=== PATIENT | female | born 1980 | race Two or more races ===

== ENCOUNTER → 2016-06-30 | Outpatient (REF) | payer OTHER | LOC: M LAB REF 17:08 | PROVIDERS: ATTEND Obstetrics & Gynecology | DX: Z12.4 Encounter for screening for malignant neoplasm of cervix (principal) ==

== ENCOUNTER 2016-09-27 08:12 | Emergency (ER) | payer OTHER ==
[~2016-09-27] VITALS: Ht 167.6 cm; Wt 93.0 kg
[2016-09-27] MEDS ORDERED: PROP60TA18 PO (08:20)
[2016-09-27] MEDS ORDERED: EFFE150C PO (08:20)
[2016-09-27] MEDS ORDERED: TETRACAINE 0.5% OPHTH SOLN 4ML OS ONE (09:45)
[2016-09-27] MEDS ORDERED: FLUORESCEIN OPHTH 1 MG STRIP OS ONE (09:45)
[2016-09-27] MEDS ORDERED: CYCL1SOL17 OS (10:57)
[2016-09-27] MEDS ORDERED: CIPR0.3S OS (11:01)
[2016-09-27 11:06] VITALS: BP 114/85
== END 2016-09-27 11:15 | disposition home or self-care (01) ==
LOC: M ED 08:12
DX: H20.012 Primary iridocyclitis, left eye (principal); F41.9 Anxiety disorder, unspecified; Z79.899 Other long term (current) drug therapy; Z88.1 Allergy status to other antibiotic agents; Z88.5 Allergy status to narcotic agent

== ENCOUNTER 2016-12-15 23:34 | Emergency (ER) | payer OTHER ==
[~2016-12-15] VITALS: Ht 167.6 cm; Wt 98.8 kg
[~2016-12-15 23:34] MED LIST: CIPR0.3S OS; CYCL1SOL17 OS; EFFE150C PO; PROP60TA18 PO
[2016-12-15] MEDS ORDERED: PROBCAP4 PO (23:42)
[2016-12-16] MEDS ORDERED: IBUPROFEN 800 MG TAB PO ONE (00:45)
--- NOTE | 2016-12-16 01:16 | REP ---
Clinical: Trauma. Technique: AP, lateral, bilateral oblique views of the left hand. Findings: No acute fracture or dislocation. Skeletal structures, joint spaces, and surrounding soft tissues appear normal for age. No subcutaneous emphysema or radiodense foreign body. Impression: Age-appropriate left hand radiographs. No acute fracture or dislocation. Signed by Rigoberto Lau MD 12/16/2016 01:08 A
[2016-12-16 01:35] VITALS: BP 159/100
== END 2016-12-16 01:37 | disposition home or self-care (01) ==
LOC: M ED 23:34
DX: S63.512A Sprain of carpal joint of left wrist, initial encounter (principal); W22.8XXA Striking against or struck by other objects, initial encounter; Y92.119 Unspecified place in children's home and orphanage as the place of occurrence of the external cause; Y93.89 Activity, other specified; Y99.0 Civilian activity done for income or pay; F41.9 Anxiety disorder, unspecified; Z87.891 Personal history of nicotine dependence; Z79.899 Other long term (current) drug therapy; Z88.1 Allergy status to other antibiotic agents; Z88.5 Allergy status to narcotic agent

== ENCOUNTER → 2017-01-22 | Outpatient (CLI) | payer OTHER ==
[~2017-01-22] MED LIST changes: +PROBCAP4 PO
== END ==
LOC: M SMT 13:00
PROVIDERS: ATTEND Obstetrics & Gynecology
DX: Z11.3 Encounter for screening for infections with a predominantly sexual mode of transmission (principal)

== ENCOUNTER 2017-06-08 14:31 | Emergency (ER) | payer OTHER | END 2017-06-08 17:16 | disposition home or self-care (01) | LOC: M ED 14:31 | DX: L03.116 Cellulitis of left lower limb (principal); E28.2 Polycystic ovarian syndrome; F41.9 Anxiety disorder, unspecified; Z79.899 Other long term (current) drug therapy; Z98.890 Other specified postprocedural states; Z87.891 Personal history of nicotine dependence; Z88.8 Allergy status to other drugs, medicaments and biological substances | CPT/HCPCS: 87880 ==

== ENCOUNTER → 2017-10-28 | Outpatient (CLI) | payer OTHER ==
[2017-10-28 09:52] LABS: HEMATOCRIT 39.8 % (36.0-47.0); HEMOGLOBIN 12.9 g/dl (12.0-15.5); MEAN CORPUSCULAR HEMOGLOBIN 28.2 pg (27.0-33.0); MEAN CORPUSCULAR HGB CONC 32.4 g/dl (32.0-36.5); MEAN CORPUSCULAR VOLUME 87.1 fl (80.0-96.0); PLATELET COUNT, AUTOMATED 309 10^3/uL (150-450); RED BLOOD COUNT 4.57 10^6/uL (4.00-5.40); RETIC HEMOGLOBIN EQUIVALENT 32.8 pg (24-36); RETICULOCYTE # 58.5 10^9/L (17-77); RETICULOCYTE % 1.3 % (0.5-1.5); WHITE BLOOD COUNT 7.1 10^3/uL (4.0-10.0)
[2017-10-28 10:28] LABS: CHOLESTEROL LEVEL 216 MG/DL (<200); FERRITIN 8 NG/ML (8-252); GAMMA GLUTAMYLTRANSPEPTIDASE 52 U/L (5-55); HDL CHOLESTEROL 72 MG/DL (>40); IRON (FE) 133 UG/DL (50-170); LDL CHOLESTEROL 119.6 MG/DL (<100); LUTEINIZING HORMONE 6.9 mIU/mL; NON-HDL-C 144 MG/DL; TRIGLYCERIDES LEVEL 122 MG/DL (<150)
[2017-10-28 10:29] LABS: FOLATE 20.5 NG/ML; FOLLICLE STIMULATING HORMONE 4.1 mIU/mL; VITAMIN B12 LEVEL 470 PG/ML
[2017-10-29 15:24] LABS: FREE T3 2.8 PG/ML (2.2-4.0); FREE T4 0.98 NG/DL (0.76-1.46)
== END ==
LOC: M LAB 09:11
DX: D64.9 Anemia, unspecified (principal); E28.2 Polycystic ovarian syndrome; F33.40 Major depressive disorder, recurrent, in remission, unspecified; E66.8 Other obesity; I10 Essential (primary) hypertension; F10.10 Alcohol abuse, uncomplicated
CPT/HCPCS: 82746

== ENCOUNTER 2018-01-04 08:06 | Emergency (ER) | payer OTHER | END 2018-01-04 09:40 | disposition home or self-care (01) | LOC: M ED 08:06 | DX: S50.861A Insect bite (nonvenomous) of right forearm, initial encounter (principal); S60.464A Insect bite (nonvenomous) of right ring finger, initial encounter; W57.XXXA Bitten or stung by nonvenomous insect and other nonvenomous arthropods, initial encounter; Y92.099 Unspecified place in other non-institutional residence as the place of occurrence of the external cause; Y93.9 Activity, unspecified; Y99.9 Unspecified external cause status; Z79.899 Other long term (current) drug therapy; Z88.1 Allergy status to other antibiotic agents; Z88.8 Allergy status to other drugs, medicaments and biological substances | CPT/HCPCS: 99283 ==

== ENCOUNTER → 2018-04-15 | Outpatient (CLI) | payer OTHER ==
[~2018-04-15] MED LIST changes: +BACT800T5 PO; +BUSP10TA; -EFFE150C PO; +EFFE150C2 PO; +METF500T13 PO; +NALT50TA4; +PRED20TA PO; +bcp PO; +vitamin b
--- NOTE | 2018-04-15 10:29 | REP ---
MRI right knee without contrast: History: Patellofemoral disorders, right knee. Rule out chondral injury to the patellar joint. Technique: Axial, coronal and sagittal imaging planes are utilized. T1, proton density and T2-weighted scans were obtained in the usual fashion. MRI findings: There is a small joint effusion. There is no evidence of loose body. No Sanchez's cyst is seen. However, there is a parameniscal cyst posteriorly and medially adjacent to the posterior body and posterior horn of the medial meniscus. I do not resolve a neha meniscal tear. The lateral meniscus is intact. There is no evidence of medial or lateral collateral ligament disruption. Anterior and posterior cruciate ligaments have an intact appearance. Patellar and quadriceps tendons are unremarkable. Medial and lateral patellar retinacular structures appear intact. There is moderate patellar surface chondromalacia. There is no evidence of patella shaw. The Insall-Salvati ratio is normal at 1.1. The trochlear groove appears somewhat shallow. There is also moderate chondromalacia in the medial femoral condyle and milder changes are noted in the lateral femoral condyle and lateral tibial plateau articular cartilage. No full-thickness lesion is seen. There is early medial and lateral tibial plateau spurring. 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 There is a parameniscal cyst associated with the posterior horn of the medial meniscus but no identifiable meniscal tear. Small joint effusion. No other evidence of internal derangement. Electronically Signed by Felton Lopez MD 04/15/2018 10:17 P
== END ==
LOC: M RAD 08:10
PROVIDERS: ATTEND Orthopaedic Surgery Sports Medicine
DX: M22.2X1 Patellofemoral disorders, right knee (principal)

== ENCOUNTER 2018-08-23 08:12 | Emergency (ER) | payer OTHER ==
[~2018-08-23] VITALS: Ht 167.6 cm; Wt 97.7 kg
[2018-08-23] MEDS ORDERED: OMEP40CA2 PO (08:28)
[2018-08-23] MEDS ORDERED: CLAR10CA3 PO (09:39)
[2018-08-23 09:45] VITALS: BP 157/80
[2018-08-23] MEDS ORDERED: LORATADINE 10 MG TAB PO ONE (09:45)
[2018-08-23] MEDS ORDERED: TRIAMCINOLONE ACETONIDE SUSP 40 MG/ML VIAL (J3301) IM ONE (10:00)
[2018-08-24] MEDS ORDERED: TRIAMCINOLONE ACETONIDE SUSP 40 MG/ML VIAL (J3301) IM ONE (09:00)
== END 2018-08-23 10:13 | disposition home or self-care (01) ==
LOC: M ED 09:17
DX: S50.862A Insect bite (nonvenomous) of left forearm, initial encounter (principal); W57.XXXA Bitten or stung by nonvenomous insect and other nonvenomous arthropods, initial encounter; Y92.89 Other specified places as the place of occurrence of the external cause; F41.9 Anxiety disorder, unspecified; E28.2 Polycystic ovarian syndrome; Z79.899 Other long term (current) drug therapy; Z88.8 Allergy status to other drugs, medicaments and biological substances
CPT/HCPCS: 96372; 99283; J3301

== ENCOUNTER → 2019-01-17 | Outpatient (CLI) | payer OTHER ==
[~2019-01-17] MED LIST changes: +BUSP15TA47 PO; +CLAR10CA3 PO; +IBUP-1022 PO; +OMEP-218 PO; +OMEP40CA97 PO; +OXYC1TAB23 PO; +VENL75CA47 PO
[2019-01-17 14:52] LABS: HEMATOCRIT 36.8 % (36.0-47.0); HEMOGLOBIN 11.8 g/dl (12.0-15.5); MEAN CORPUSCULAR HGB CONC 32.1 g/dl (32.0-36.5); MEAN CORPUSCULAR VOLUME 87.4 fl (80.0-96.0); PLATELET COUNT, AUTOMATED 379 10^3/uL (150-450); RED BLOOD COUNT 4.21 10^6/uL (4.00-5.40); WHITE BLOOD COUNT 14.2 10^3/uL (4.0-10.0)
[2019-01-17 15:22] LABS: FREE T4 0.96 NG/DL (0.76-1.46); THYROID STIMULATING HORMONE 0.406 uIU/ML (0.358-3.740)
== END ==
LOC: M LAB 14:17
PROVIDERS: ATTEND Obstetrics & Gynecology
DX: N92.0 Excessive and frequent menstruation with regular cycle (principal)

== ENCOUNTER → 2019-01-18 | Outpatient (CLI) | payer OTHER ==
[~2019-01-18] MED LIST changes: -OXYC1TAB23 PO
--- NOTE | 2019-01-19 03:00 | REP ---
Clinical: Abnormal menstrual cycles and menorrhagia . Technique: Transabdominal pelvic ultrasound followed by transvaginal examination for better evaluation of the endometrium and adnexa with color Doppler evaluation of the ovaries. Findings: Bladder is unremarkable and measures 7.1 x 3.4 x 4.9 cm Heterogeneous anteverted uterus measures 10.1 x 5.8 x 6.8 cm and includes 2.8 cm anterior intramural fibroid and 1.4 cm anterior right intramural fibroid. The endometrial complex measures 5.2 mm thickness. No discrete uterine or endometrial abnormalities are appreciated. Bilateral ovaries are normal in appearance and vascularity without evidence for torsion. Right ovary measures 2.8 x 2.2 x 2.3 cm ; R I = 0.63 . Left ovary measures 3.1 x 1.5 x 2.2 cm ; R I = 0.47 . No pelvic fluid or adnexal mass lesion . Impression: 1. Slightly enlarged heterogeneous uterus with two intramural fibroids identified. Electronically Signed by Rigoberto Lau MD 01/19/2019 02:52 A
== END ==
LOC: M RAD 10:01
PROVIDERS: ATTEND Obstetrics & Gynecology
DX: N92.0 Excessive and frequent menstruation with regular cycle (principal)

== ENCOUNTER 2019-01-26 08:31 | Day surgery (SDC) | payer OTHER ==
[~2019-01-26] VITALS: Ht 167.6 cm; Wt 100.7 kg
[2019-01-26] VITALS (10 sets, daily range): BP systolic 90–113; BP diastolic 50–61; O2SAT 95–98
[~2019-01-26 08:31] MED LIST changes: +CIPROFLOXACIN 400 MG in IV 1 EA IV ONE; +LR 1,000 ML IV ONE; +metroNIDAZOLE 500 MG in IV 1 EA IV ONE
[2019-01-26] MEDS ORDERED: dexameTHASONE 4 MG/ML 1ML VIAL (J1100) As Ordered ONE (09:03)
[2019-01-26] MEDS ORDERED: HYDROmorphone HCL 2 MG/ML 1ML VIAL (J1170) As Ordered ONE (09:03)
[2019-01-26] MEDS ORDERED: LIDOCAINE 2% INJ 100 MG/5 ML SDV (FOR ANES.) As Ordered ONE (09:03)
[2019-01-26] MEDS ORDERED: ROCURONIUM BROMIDE 50 MG/5 ML VIAL As Ordered ONE (09:03)
[2019-01-26] MEDS ORDERED: ONDANSETRON 4MG/2ML VIAL (J2405) As Ordered ONE (09:03)
[2019-01-26] MEDS ORDERED: ACETAMINOPHEN 1000MG 100ML IV BTL (OFIRMEV) (J0131 PER 10MG) As Ordered ONE (09:03)
[2019-01-26] MEDS ORDERED: fentaNYL 100 MCG/2 ML INJECTION (J3010) As Ordered ONE ×2 (09:03→12:40)
[2019-01-26] MEDS ORDERED: SUGAMMADEX SODIUM 500 MG/5 ML VIAL (BRIDION) As Ordered ONE (09:03)
[2019-01-26] MEDS ORDERED: PROPOFOL 200 MG/20 ML VIAL As Ordered ONE (09:03)
[2019-01-26] MEDS ORDERED: KETOROLAC 60 MG/2 ML VIAL (J1885) As Ordered ONE (09:03)
[2019-01-26] MEDS ORDERED: MIDAZOLAM INJ 2 MG/2 ML VIAL (J2250) As Ordered ONE (09:04)
[2019-01-26] MEDS ORDERED: BUPIVACAINE HCL 0.25% 30 ML VIAL As Ordered ONE (10:00)
[2019-01-26] MEDS ORDERED: ePHEDrine SULFATE 25 MG/5 ML(5MG/ML) SYRINGE As Ordered ONE (10:39)
[2019-01-26] MEDS: fentaNYL 100 MCG/2 ML INJECTION (J3010) IV PRN ×3 (12:42→12:55)
[2019-01-26] MEDS ORDERED: LR 1,000 ML IV SCH ×2 (13:30)
[2019-01-26] MEDS ORDERED: METOCLOPRAMIDE INJ 10MG/2ML VIAL (J2765) IV PRN (13:30)
[2019-01-26] MEDS ORDERED: PERCOCET 5MG/325MG TAB PO PRN ×2 (13:30)
[2019-01-26] MEDS ORDERED: ONDANSETRON 4MG/2ML VIAL (J2405) IV PRN (13:30)
[2019-01-26] MEDS ORDERED: HYDROMORPHONE HCL 0.5 MG/ 0.5 ML SYRINGE (J1170 PER 1) IV PRN (13:30)
[2019-01-26] MEDS ORDERED: PROMETHAZINE INJ 25 MG/ML VIAL (J2550) IV PRN (13:45)
[2019-01-26] MEDS ORDERED: MORPHINE 4 MG/ML 1ML VIAL/SYRINGE (J2270) IV PRN (13:45)
[2019-01-26] MEDS ORDERED: zolPIDEM TARTRATE 5 MG TAB PO PRN (13:45)
[2019-01-26] MEDS ORDERED: PHENYLEPHRINE INJ 10MG/ML VIAL (J2370) As Ordered ONE (14:03)
[2019-01-26] MEDS ORDERED: OXYC1TAB23 PO (14:21)
--- NOTE | 2019-01-26 14:29 | RO ---
DATE OF PROCEDURE: 01/26/2019 PREOPERATIVE DIAGNOSIS: Abnormal uterine bleeding. POSTOPERATIVE DIAGNOSIS: Abnormal uterine bleeding. PROCEDURES PERFORMED: 1. Robotic-assisted laparoscopic hysterectomy. 2. Bilateral salpingectomy. 3. Cystoscopy. SURGEON: Angela Shanks MD. PRODUCT TEST SPECIALIST: None. ANESTHESIA: Generally tracheal anesthesia. ESTIMATED BLOOD LOSS: 15 mL. IV FLUIDS: 1200 mL URINE OUTPUT: 500 mL. PREOPERATIVE ANTIBIOTICS: Ciprofloxacin and Flagyl OPERATIVE FINDINGS: Patient with a large uterus with normal adnexa. Cystoscopic findings revealed normal bladder mucosa. No foreign bodies or objects. Bilateral ureter jets were observed during cystoscopy. SPECIMENS: Cervix, uterus, bilateral fallopian tube. DESCRIPTION OF OPERATION: After informed consent was obtained and written consent was reviewed, the patient brought to the operating room where she was placed under general endotracheal anesthesia. She was then placed in lithotomy position and was prepped and draped in normal sterile fashion. A time-out in the operating room was performed identifying the patient, procedure to be performed as well as drug allergies. Speculum was then placed revealing the cervix. Anterior posterior aspects of the cervix stitched with 0 Vicryl. An extra large VCare uterine manipulator was advanced through the cervical os for means to manipulate the uterus. 7 mL of air was then insufflated. The cervical cap as well as vaginal sleeve was advanced down into the vagina. A Nesbitt catheter was then placed set to gravity. Gloves changed. Attention was turned to the patient's abdomen where a Veress needle was placed in the umbilicus and a pneumoperitoneum was obtained with CO2 gas. Supraumbilical area was then infused with 0.25% Marcaine. An incision was made in this area. An 8 mm trocar sleeve was advanced through this incision. Laparoscope was replaced revealing intra-abdominal placement. Three additional port sites were placed, one to the patient's right side, two to the patient's left of the umbilicus. Each one of these areas were infused with 0.25% Marcaine. An incision was made in each one of these areas. 8 mm trocars and sleeves advanced through each one of these incisions under direct visualization. The abdomen was then surveyed with the above-noted findings. Next, the da Tiffany was docked utilizing camera arm and two operative arms. Utilizing a vessel sealer the mesosalpinx, bilateral fallopian tubes were cauterized and ligated with good hemostasis noted. This was performed up to the level of the uterus. The round ligaments were ligated bilaterally with good hemostasis noted. The anterior lip of the broad ligaments were then , cauterized and ligated creating a bladder flap. The remainder of the broad cardinal ligaments were then cauterized and ligated with good hemostasis noted. The uterine vessels were then skeletonized bilaterally and cauterized and ligated with good hemostasis noted. Next, anterior and posterior colpotomies were made using monopolar scissors. The uterus was then removed vaginally along with bilateral fallopian tubes. Surgical sites were then inspected and noted be hemostatic. The vaginal incision was then closed with old V-Loc in a running fashion. Surgical sites were irrigated and suctioned. Petey was applied over the surgical field. The da Tiffany was then undocked and a cystoscopy was performed. Nesbitt catheter was removed and the cystoscope was advanced transurethrally into the bladder. Survey showed normal bladder mucosa. No foreign bodies or objects and bilateral ureter jets were observed. The bladder was then drained. Gloves were changed. Attention was turned to the patient's abdomen. A four trocars were removed and the pneumoperitoneum was released. All four port sites were closed for Monocryl and dressed with Dermabond. The patient was then taken out of the lithotomy position, was awakened from general anesthesia and taken recovery in stable condition. Counts correct.
[2019-01-26] MEDS ORDERED: PHENYLEPHRINE HCL INJ 10 MG in D5W 99 ML IV SCH (14:30)
[2019-01-26] MEDS ORDERED: LACTATED RINGER'S 500 ML IV ONE (14:30)
[2019-01-26] MEDS ORDERED: PHENYLephrine HCL 500 MCG/5 ML (100MCG/ML) SYRINGE (J2370) IV SCH (14:30)
[2019-01-26] MEDS: KETOROLAC 30 MG/ML VIAL (J1885) IV SCH ×2 (18:38→23:12)
[2019-01-26] MEDS: PERCOCET 5MG/325MG TAB PO PRN (22:07)
[2019-01-26] MEDS ORDERED: SIMETHICONE 80 MG CHEW TAB PO PRN (23:45)
[2019-01-27] VITALS: BP 111/65; O2SAT 95
[2019-01-27 01:00] VITALS: O2SAT 97
[2019-01-27 04:00] VITALS: BP 128/67; O2SAT 95
[2019-01-27] MEDS: PERCOCET 5MG/325MG TAB PO PRN ×2 (04:28→09:31)
[2019-01-27 05:00] VITALS: O2SAT 95
[2019-01-27 06:00] VITALS: O2SAT 94
[2019-01-27] MEDS: KETOROLAC 30 MG/ML VIAL (J1885) IV SCH (06:13)
[2019-01-27 07:23] LABS: HEMOGLOBIN 7.7 g/dl (12.0-15.5); MEAN CORPUSCULAR HEMOGLOBIN 27.3 pg (27.0-33.0); MEAN CORPUSCULAR HGB CONC 30.8 g/dl (32.0-36.5); MEAN CORPUSCULAR VOLUME 88.7 fl (80.0-96.0); PLATELET COUNT, AUTOMATED 287 10^3/uL (150-450); RED BLOOD COUNT 2.82 10^6/uL (4.00-5.40); WHITE BLOOD COUNT 10.8 10^3/uL (4.0-10.0)
[2019-01-27 08:00] VITALS: BP 106/57
== END 2019-01-27 09:45 | disposition home or self-care (01) ==
LOC: M SDC 08:31 → M PED 15:10 → M SDC 01-27 09:45
PROVIDERS: ATTEND Obstetrics & Gynecology
DX: D25.1 Intramural leiomyoma of uterus (principal); N80.0 Endometriosis of uterus; N93.9 Abnormal uterine and vaginal bleeding, unspecified; D64.9 Anemia, unspecified; F41.9 Anxiety disorder, unspecified; G43.909 Migraine, unspecified, not intractable, without status migrainosus; R06.83 Snoring; G47.30 Sleep apnea, unspecified; Z88.1 Allergy status to other antibiotic agents; Z88.5 Allergy status to narcotic agent; Z79.899 Other long term (current) drug therapy; Z98.51 Tubal ligation status
CPT/HCPCS: 36415; 58571; 81025; 85027; 86850; 86900; 86901; 88307; J0131; J0744; J1100; J1170; J1885; J2250; J2370; J2405; J3010

== ENCOUNTER → 2019-06-17 | Outpatient (CLI) | payer OTHER, MEDICAID ==
[~2019-06-17] MED LIST changes: -CIPROFLOXACIN 400 MG in IV 1 EA IV ONE; -LR 1,000 ML IV ONE; +OXYC1TAB23 PO; -metroNIDAZOLE 500 MG in IV 1 EA IV ONE
[2019-06-17 08:36] LABS: HEMATOCRIT 39.5 % (36.0-47.0); HEMOGLOBIN 13.1 g/dl (12.0-15.5); MEAN CORPUSCULAR HEMOGLOBIN 28.9 pg (27.0-33.0); MEAN CORPUSCULAR HGB CONC 33.2 g/dl (32.0-36.5); PLATELET COUNT, AUTOMATED 378 10^3/uL (150-450); RED BLOOD COUNT 4.54 10^6/uL (4.00-5.40); WHITE BLOOD COUNT 9.5 10^3/uL (4.0-10.0)
[2019-06-17 08:58] LABS: PERCENT SATURATION 22.4 % (13.2-45.0)
== END ==
LOC: M LAB 07:41
PROVIDERS: ATTEND Family Medicine
DX: D50.8 Other iron deficiency anemias (principal)

== ENCOUNTER → 2019-06-20 | Outpatient (CLI) | payer OTHER ==
--- NOTE | 2019-06-21 09:02 | SLEEPCENT ---
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 6 hours and 43 minutes of data were reviewed. There were 369.5 minutes of sleep identified. Sleep latency was prolonged at 16 minutes. REM latency was further prolonged at 275-minute. Sleep architecture showed poor progression. There were two REM cycles. Overall sleep efficiency was 92.5% but there was a significant reduction in REM time. The patient's electrocardiogram shows a sinus rhythm with an average heart rate of 57 beats per minute. Rate ranged 40-80. EEG showed some coarsening in background, but otherwise normal waveforms for awake and sleep. There were 61 respiratory events identified of 10 seconds in duration or greater for an apnea-hypopnea index of 9.9. The events were not exclusive to sleep stage nor body posture. Arousals from respiratory events occurred 3.4 times per hour and oxygen desaturations were seen into the 80s. There was some activity noted in limb EMG leads but no trains of events and snoring was noted over the entire study. IMPRESSION: Obstructive sleep apnea syndrome (G47.33). Apnea-hypopnea index 9.9. RECOMMENDATIONS: The patient should be referred back to sleep disorder center for pressure therapy. In the interim alcohol and sedative avoidance should be practiced and caution exercised during operation of motor vehicles.
== END ==
LOC: M SLEEP 07:00
PROVIDERS: ATTEND Physician Assistant
DX: G47.33 Obstructive sleep apnea (adult) (pediatric) (principal)

== ENCOUNTER → 2019-08-22 | Outpatient (CLI) | payer OTHER, MEDICAID ==
--- NOTE | 2019-08-25 11:03 | SLEEPCENT ---
DATE OF PROCEDURE: 08/22/2019 ORDERED BY: SAMANTHA Calix Polysomnography was performed for the titration of pressure therapy. Testing was performed during the daytime the patient's normal sleep cycle. For testing a ResMed Quattro full-face mask of medium size was used; 4 cm of water pressure were applied to the circuit and the lights were extinguished. 6 hours and 11 minutes of data were reviewed. There were 326 minutes of sleep identified. Sleep latency was mildly prolonged 20 minutes. Rapid eye movement (REM) latency was more so prolonged at 326 minutes. Sleep architecture showed poor progression, but there was 1 REM cycle late in the study. Overall sleep efficiency was 89.9%. The patient's electrocardiogram showed a sinus rhythm with an average heart rate of 54 beats per minute. Electroencephalogram (EEG) showed reasonably normal waveforms for awake and sleep. Some coarsening was appreciated in non-REM stages, possibly medication related. Respiratory events were optimally palliated with CPAP at a pressure of +7 and remaining measures of sleep physiology were normal. IMPRESSION: Obstructive sleep apnea syndrome (G47.33). RECOMMENDATIONS: Nightly use of pressure therapy 7 cm of water.
== END ==
LOC: M SLEEP 06:48
PROVIDERS: ATTEND Physician Assistant
DX: G47.33 Obstructive sleep apnea (adult) (pediatric) (principal)

== ENCOUNTER → 2020-01-01 | Outpatient (REF) | payer OTHER, MEDICAID ==
[~2020-01-01] MED LIST changes: -CIPR0.3S OS; +CIPR0.3S6 OS
[2020-01-01 17:46] LABS: APPEARANCE, URINE HAZY (CLEAR); BACTERIA, URINE AUTO 1+ (NEGATIVE); BILIRUBIN, URINE AUTO NEGATIVE (NEGATIVE); BLOOD, URINE BLOOD 2+ (NEGATIVE); COLOR, URINE YELLOW (YELLOW); GLUCOSE, URINE (UA) AUTO NEGATIVE (NEGATIVE); KETONE, URINE AUTO NEGATIVE (NEGATIVE); LEUKOCYTE ESTERASE, URINE AUTO 2+ (NEGATIVE); MUCUS, URINE SMALL (NEGATIVE); NITRITE, URINE AUTO NEGATIVE (NEGATIVE); PROTEIN, URINE AUTO 1+ mg/dL (NEGATIVE); RBC, URINE AUTO 14 /HPF (0-3); SPECIFIC GRAVITY URINE AUTO 1.008 (1.002-1.035); SQUAMOUS EPITHELIAL CELL UR AU 0 /HPF (0-6); UROBILINOGEN, URINE AUTO 0.2 mg/dL (0.0-2.0); WBC, URINE AUTO 62 /HPF (0-3)
== END ==
LOC: M LAB 17:31
PROVIDERS: ATTEND Physician Assistant Medical
DX: R30.0 Dysuria (principal)

== ENCOUNTER 2020-04-20 06:01 | Emergency (ER) | payer OTHER, MEDICAID ==
[~2020-04-20] VITALS: Ht 167.6 cm; Wt 96.5 kg
[2020-04-20] MEDS ORDERED: PHEN-239 PO (06:08)
[2020-04-20] MEDS ORDERED: IMIT50TA PO (06:09)
[2020-04-20 06:27] VITALS: BP 139/90
[2020-04-20] MEDS ORDERED: ACETAMINOPHEN 500 MG TAB PO ONE (06:30)
[2020-04-20] MEDS ORDERED: NS 1,000 ML IV ONE (06:30)
[2020-04-20] MEDS ORDERED: METOCLOPRAMIDE INJ 10MG/2ML VIAL (J2765 PER 1) IV ONE (06:30)
[2020-04-20] MEDS ORDERED: SUMAtriptan SUCCINATE 6 MG/0.5 ML VIAL SC ONE (06:45)
--- OUTSIDE RECORDS SUMMARY | 2020-04-20 06:54 | CCD ---
Author Author [facility] Organization [facility] Address [address] [place] [address] Phone Care Team Providers Care Agriculture Teacher Name Role Phone June KRAMER, Rossana Manzanares Unavailable [phone] Jae Susan ROUSSEAU Unavailable [phone] Barry Waggoner MD Unavailable [phone] Reason for Referral No Reason for Referral Recorded Problems Includes: Active, inactive, and resolved Problems All Visits Onset Date - Time Resolved Date - Time Provider Co ndition Status Alcohol Disorders 04/08/2017 - 12:00AM Rossana Watkins MD Active Note: Unchanged Iron Deficiency Anemia 04/08/2017 - 12:00AM Rossana Watkins MD Active Note: Unchanged Fatigue 04/08/2017 - 12:00AM Rossana Watkins MD A ctive Note: Unchanged Obesity 04/08/2017 - 12:00AM Rossana Watkins MD A ctive Note: Unchanged Ovarian Cyst 03/06/2017 - 12:00AM Rossana Watkins MD A ctive Note: Unchanged Common Cold 03/06/2017 - 12:00AM Unknown - Unknown Rossana Watkins MD Resolved Note: Unchanged Menorrhagia 03/06/2017 - 12:00AM Unknown - Unknown Rossana Watkins MD Resolved Note: Unchanged Impaired Fasting Glucose 03/06/2017 - 12:00AM Rossana Watkins MD Active Note: Unchanged Anxiety Disorder Nos 03/26/2016 - 12:00AM Susansussy Nelson IMPREGNATOR Active Note: Unchanged Depression 03/26/2016 - 12:00AM Susan Glenna Jae IMPREGNATOR Acti ve Note: Unchanged Plan of Treatment Pending Tests Order Diagnosis Results Due Ordering Provi jae Ultrasound Abdominal Ultrasound Other specified abn ormal findings of blood chemistry 10/25/15 Rossana Watkins MD *Labs (Manual) HEPATITIS A ANTIBODY Other specified abn ormal findings of blood chemistry 10/25/15 Rossana Watkins MD *Labs (Manual) HEPATITIS B ANTIBODY Other specified abn ormal findings of blood chemistry 10/25/15 Rossana Watkins MD *Labs (Manual) HEPATITIS C ANTIBODY Other specified abn ormal findings of blood chemistry 10/25/15 Rossana Watkins MD *Labs (Manual) LYME TITER Unspecified iridocyclitis 10/14/16 Barry Waggoner MD *Labs (Manual) ADNA, TOVA Unspecified iridocyclitis 10/14/16 Barry Waggoner MD *Labs (Manual) C REACTIVE PROTEIN Unspecified iridocyclitis 7 Barry Waggoner MD *Labs (Manual) ESR Unspecified iridocyclitis 10/14/16 Barry Waggoner MD *Labs (Manual) RA TEST Unspecified iridocyclitis 10/14/16 Barry Waggoner MD *Labs (Manual) STREP TEST Acute pharyngitis due to other s pecified organisms 02/23/17 Rossana Watkins MD *Labs (Manual) *RANDOM Acute pharyngitis due to other s pecified organisms 02/23/17 Rossana Watkins MD *Labs (Manual) *RANDOM Acute pharyngitis due to other s pecified organisms 02/25/17 Susan A Jae IMPREGNATOR *Labs (Manual) CBC Acute pharyngitis due to other specifie d organisms 02/25/17 Susan A Jae IMPREGNATOR *Labs (Manual) MONOSPOT Acute pharyngitis due to other s pecified organisms 02/25/17 Susan A Jae IMPREGNATOR *Labs (Manual) *FASTING Iron deficiency anemia, unspecified Rossana Watkins MD *Labs (Manual) FE Iron deficiency anemia, unspecified Rossana Watkins MD Ultrasound Pelvic Ultrasound w/Endovaginal Probe Ot her specified abnormal uterine and vaginal bleeding 03/03/17 Rossana Watkins MD *Labs (Manual) CA 125 Other specified abnormal uterine and vaginal bleeding 03/03/17 Rossana Watkins MD *Labs (Manual) *RANDOM Other specified abnormal uterine and vaginal bleeding 03/03/17 Rossana Watkins MD *Labs (Manual) CBC Other iron deficiency anemias 04/22/17 Rossana Watkins MD *Labs (Manual) HGA1C Impaired fasting glucose 05/18/17 Michael Watkins MD *Labs (Manual) MICROALBUMIN Impaired fasting glucose 05/18/17 Michael Watkins MD *Labs (Manual) FREE T4 Other fatigue 10/29/17 Rossana martin MD *Labs (Manual) FREE T3 Other fatigue 10/29/17 Rossana martin MD *Labs (Manual) *RANDOM Other fatigue 10/29/17 Rossana martin MD *Labs (Manual) *RANDOM Hyperlipidemia, unspecified 10/29/17 Rossana Watkins MD *Labs (Manual) LIPID Hyperlipidemia, unspecified 10/29/17 Rossana Watkins MD *Labs (Manual) *FASTING Other hyperlipidemia 10/29/17 Connor Watkins MD *Labs (Manual) LIPID Other hyperlipidemia 10/29/17 Connor Watkins MD X-RAY Knee Left X-Ray Pain in unspecified joint 12/01/17 Rossana Watkins MD X-RAY Knee Right X-Ray Pain in unspecified joint 12/01/17 Rossana Watkins MD *Labs (Manual) CULTURE & SENSITIVITY Sebaceous cyst 06/07/18 Valerie Watkins MD *Labs (Manual) CBC Anemia, unspecified 04/18/19 Manish Watkins MD *Labs (Manual) FE Anemia, unspecified 04/18/19 Manish Watkins MD *Labs (Manual) FERRITIN Anemia, unspecified 04/18/19 Manish Watkins MD *Labs (Manual) TIBC Anemia, unspecified 04/18/19 Manish Watkins MD *Labs (Manual) RETIC Anemia, unspecified 04/18/19 Manish Watkins MD *Labs (Manual) VIT B12 Anemia, unspecified 04/18/19 Manish Watkins MD *Labs (Manual) FOLATE Anemia, unspecified 04/18/19 Manish Watkins MD *Labs (Manual) TSH Other fatigue 04/18/19 Rossana martin MD *Labs (Manual) LIPID Other obesity 04/18/19 Rossana martin MD *Labs (Manual) GGT Alcohol abuse, uncomplicated 04/18/19 Rossana Watkins MD *Labs (Manual) CBC Other iron deficiency anemias 04/22/19 Rossana Watkins MD *Labs (Manual) FE Other iron deficiency anemias 04/22/19 Rossana Watkins MD *Labs (Manual) FERRITIN Other iron deficiency anemias 04/22/19 Rossana Watkins MD *Labs (Manual) RETIC Other iron deficiency anemias 04/22/19 Rossana Watkins MD *Labs (Manual) TIBC Other iron deficiency anemias 04/22/19 Rossana Watkins MD Care Programs [facility] Future Appointments Date Time Location Provider STANDARD OV 05/15/2020 2:45PM Family Medicine KELLIE Gallo SERVICE LEARNING COORDINATOR Findings Encounter Date PDMP CONSULTED -- PHENTERMINE REFILLED BETAMETHASONE TO INTERDIGITS BID x 2W FFUP 4W MED CHK STANDARD OV with Kathryn Freire NP 04/17/2020 PDMP CONSULTED -- PHENTERMINE REFILLED FFUP 4W MED CHK STANDARD OV with Kathryn Freire NP 03/20/2020 Ordered follow-up visit WRITE-IN (SAME DAY) with Rossana sorenson MD 05/10/2018 Ordered follow-up visit STANDARD OV with Rossana Watkins MD 02/17/2018 Ordered lipid test panel STANDARD OV with Rossana Watkins MD 02/17/2018 Ordered return to the clinic if condition worsens or n ew symptoms arise STANDARD OV with Rossana Watkins MD 02/17/2018 Ordered follow-up visit WRITE-IN (SAME DAY) with Rossana sorenson MD 01/05/2018 Ordered cervical Pap smear (collected) PAP ONLY with Manish Watkins MD 12/17/2017 Ordered follow-up visit PAP ONLY with Rossana Watkins MD 01/2018 Ordered return to the clinic if condition worsens or n ew symptoms arise PAP ONLY with Rossana Watkins MD 12/17/2017 Ordered follow-up visit ANNUAL PHYSICAL EXAM with Rossana Watkins MD 11/17/2017 Ordered CBC STANDARD OV with Rossana Watkins MD 11/2017 Ordered follow-up visit STANDARD OV with Rossana Watkins MD 10/15/2017 Ordered lipid test panel STANDARD OV with Rossana Watkins MD 10/15/2017 Ordered return to the clinic if condition worsens or n ew symptoms arise STANDARD OV with Rossana Watkins MD 10/15/2017 Ordered serum TSH level, 3rd generation STANDARD OV with Larry Watkins MD 10/15/2017 Ordered return to the clinic if condition worsens or n ew symptoms arise WRITE-IN (SAME DAY) with Susan Xie 07/31/2017 Ordered fluids STANDARD OV with Rossana Watkins MD 04/10 Ordered follow-up visit STANDARD OV with Rossana Watkins MD 05/04/2017 Ordered follow-up visit STANDARD OV with Rossana Watkins MD 04/08/2017 Ordered follow-up visit arranged STANDARD OV with Rossana Watkins MD 04/08/2017 Ordered return to the clinic if condition worsens or n ew symptoms arise STANDARD OV with Rossana Watkins MD 04/08/2017 Ordered follow-up visit 1 wk otherwise 1 mo if better STANDARD OV with Rossana Watkins MD 02/17/2017 Ordered follow-up visit RTC 1 WEEK WRITE-IN (SAME DAY) with Susan Xie 02/11/2017 Ordered follow-up visit 7-10 DAYS OR JIHAN IF WORSE WR ITE-IN (SAME DAY) with Rossana Watkins MD 02/09/2017 Ordered return to the clinic if condition worsens or n ew symptoms arise WRITE-IN (SAME DAY) with Rossana Watkins MD 02/09/2017 Ordered follow-up visit RTC 1 MONTH STANDARD OV with Susan Xie 01/26/2017 Ordered follow-up visit RTC 2 WEEKS STANDARD OV with Susan Xie 01/13/2017 FINISH ABX GIVEN IN ER EMERGENCY ROOM FOLLOW-UP with Susan iXe 08/26/2016 Ordered return to the clinic if condition worsens or n ew symptoms arise EMERGENCY ROOM FOLLOW-UP with Susan Xie 08/26/2016 Ordered follow-up visit RTC 1 MONTH HOSP I/P F/U with Susan Xie 01/24/2016 Ordered follow-up visit 1 mo STANDARD OV with Rossana dixon MD 12/20/2015 Ordered follow-up visit STANDARD OV with Rossana Watkins MD 10/25/2015 Ordered return to the clinic if condition worsens or n ew symptoms arise STANDARD OV with Rossana Watkins MD 10/25/2015 Ordered CBC STANDARD OV with Rossana Watkins MD 06/2015 Ordered follow-up visit 1 MO STANDARD OV with Rossana dixon MD 10/11/2015 Ordered lipid test panel STANDARD OV with Rossana Watkins MD 10/11/2015 Ordered return to the clinic if condition worsens or n ew symptoms arise STANDARD OV with Rossana Watkins MD 10/11/2015 Ordered serum TSH level STANDARD OV with Rossana Watkins MD 10/11/2015 Ordered follow-up visit EMERGENCY ROOM FOLLOW-UP with Manish Watkins MD 09/25/2015 Ordered return to the clinic if condition worsens or n ew symptoms arise EMERGENCY ROOM FOLLOW-UP with Rossana Watkins MD 09/25/2015 Assessments Includes: Assessments for all patient encounters Findings Encounter Date Irritant contact dermatitis STANDARD OV with Kathryn Freire SERVICE LEARNING COORDINATOR 04/17/2020 Obesity STANDARD OV with Kathryn Freire N P 04/17/2020 Depression STANDARD OV with Kathryn Freire N P 03/20/2020 Generalized anxiety disorder STANDARD OV with Kathryn Freire SERVICE LEARNING COORDINATOR 03/20/2020 Obesity STANDARD OV with Kathryn Leach P 03/20/2020 Compound nevus SURGERY with Rossana Watkins MD 07/11/19 20 Non-neoplastic nevus STANDARD OV with Rossana Watkins MD Alcohol disorders STANDARD OV with Rossana Watkins MD 06/07 Depression with anxiety STANDARD OV with Rossana Watkins MD 06/21/2019 Dermatitis FACE FROM CPAP LEAD CORDS STANDARD OV with Connor Watkins MD 06/21/2019 Organic obstructive sleep apnea HAS MORE W/U SCHED ST ANDARD OV with Rossana Watkins MD 06/21/2019 Alcohol disorders STANDARD OV with Rossana Watkins MD 06/2019 Headache syndromes D/T DILLON STANDARD OV with Rossana Watkins MD 05/11/2019 Obesity STANDARD OV with Rossana Watkins MD 06/2019 Organic adult obstructive sleep apnea STANDARD OV with Connor Watkins MD 05/11/2019 Assessment of cough ANNUAL PHYSICAL EXAM with Rossana oden MD 04/04/2019 Assessment of feeling tired (fatigue) ANNUAL PHYSICAL EXAM with Rossana Watkins MD 04/04/2019 Depression with anxiety ANNUAL PHYSICAL EXAM with Rossana Watkins MD 04/04/2019 Menopause ANNUAL PHYSICAL EXAM with Rossana oden MD 04/04/2019 Normochromic, normocytic anemia ANNUAL PHYSICAL EXAM with Valerie Watkins MD 04/04/2019 Obesity ANNUAL PHYSICAL EXAM with Rossana oden MD 04/04/2019 Organic adult obstructive sleep apnea DX 3 YRS, USED CPAP 6 MOS TOTAL ANNUAL PHYSICAL EXAM with Rossana Watkins MD 04/04/2019 Routine adult history and physical (18-64 yrs) without abnormal findings ANNUAL PHYSICAL EXAM with Rossana Watkins MD 04/04/2019 Iron deficiency anemia EXTENDED VISIT with Barry Waggoner MD 01/04/2019 Ovarian cyst EXTENDED VISIT with Barry Waggoner MD 01/04/2019 Depression with anxiety STANDARD OV with Rossana Watkins MD 09/29/2018 Anxiety disorder NOS EXTENDED VISIT with Susan Nelson IMPREGNATOR 01/2019 Depression EXTENDED VISIT with Susan Manzanares Jae IMPREGNATOR 08/07 Anxiety disorder NOS EXTENDED VISIT with Susan Nelson IMPREGNATOR Depression EXTENDED VISIT with Susan Manzanares Jae IMPREGNATOR 07/09 Soft skin abscess EXTENDED VISIT with Susan Manzanares Jae IMPREGNATOR 07/09 Sebaceous cyst SUTURE REMOVAL with Susan Nelson IMPREGNATOR 05/08 Sebaceous cyst SURGERY with Rossana Watkins MD 05/25/19 19 Sebaceous cyst L JAW X 3 YRS. BIGGER LAST 6 MOS WRITE -IN (SAME DAY) with Rossana Watkins MD 05/10/2018 Heartburn STANDARD OV with Rossana Watkins MD 02/06 Obstructive sleep apnea STANDARD OV with Rossana Watkins MD 02/17/2018 Polycystic ovarian syndrome STANDARD OV with Rossana Watkins MD 02/17/2018 Prehypertension STANDARD OV with Rossana Watkins MD 02/06 Cellulitis of the right hand RING FINGER DORSALLY WRI TE-IN (SAME DAY) with Rossana Watkins MD 01/05/2018 Cellulitis of wrist WRITE-IN (SAME DAY) with Rossana Watkins MD 01/05/2018 Pruritus WRITE-IN (SAME DAY) with Rossana Watkins MD 01/05/2018 Alcohol disorders PAP ONLY with Rossana Watkins MD 018 Depression with anxiety PAP ONLY with Rossana Watkins MD 01/2018 Obesity PAP ONLY with Rossana Watkins MD 018 Abnormal Pap Smear ANNUAL PHYSICAL EXAM with Rossana oden MD 11/17/2017 Arthralgia R > L ANNUAL PHYSICAL EXAM with Rossana oden MD 11/17/2017 Assessment of wheezing ANNUAL PHYSICAL EXAM with Rossana sorenson MD 11/17/2017 Common cold ANNUAL PHYSICAL EXAM with Rossana oden MD 11/17/2017 Depression with anxiety ANNUAL PHYSICAL EXAM with Rossana Watkins MD 11/17/2017 Hyperlipidemia ANNUAL PHYSICAL EXAM with Rossana oden MD 11/17/2017 Obstructive sleep apnea HAS NOT BEEN COMPLIANT 6-8 MO S NOW. NEEDS DIFF MASK ANNUAL PHYSICAL EXAM with Rossana Watkins MD 11/17/2017 Routine adult history and physical (18-64 yrs) without abnormal findings ANNUAL PHYSICAL EXAM with Rossana Watkins MD 11/17/2017 Alcohol disorders STANDARD OV with Rossana Watkins MD 11/2017 Normochromic, normocytic anemia STANDARD OV with Rossana sorenson MD 10/15/2017 Obesity STANDARD OV with Rossana Watkins MD 11/2017 Polycystic ovarian syndrome STANDARD OV with Rossana Watkins MD 10/15/2017 Bronchitis WRITE-IN (SAME DAY) with Susan Xie 07/31/2017 Acute bronchitis STANDARD OV with Rossana Watkins MD 04/10 Adult sleep apnea being set up for cpap STANDARD OV with Valerie Watkins MD 05/04/2017 Assessment of cough STANDARD OV with Rossana Watkins MD 04/10 Assessment of wheezing STANDARD OV with Rossana Watkins MD 0 05/04/2017 Impaired fasting glucose STANDARD OV with Rossana Watkins MD 05/04/2017 Iron deficiency anemia STANDARD OV with Rossana Watkins MD 0 05/04/2017 Polycystic ovarian syndrome STANDARD OV with Rossana Watkins MD 05/04/2017 Alcohol disorders STANDARD OV with Rossana Watkins MD 03/11 Fatigue STANDARD OV with Rossana Watkins MD 03/11 Impaired fasting glucose month 2 on metformin STANDAR D OV with Rossana Watkins MD 04/08/2017 Iron deficiency anemia faithfully on fe till bloated. quit 1 wk ago STANDARD OV with Rossana Watkins MD 04/08/2017 Obesity STANDARD OV with Rossana Watkins MD 03/11 Ovarian cyst STANDARD OV with Rossana Watkins MD 03/11 Common cold STANDARD OV with Rossana Watkins MD 02/07 Impaired fasting glucose A1C 6.2 %, GOAL <6.5 % STAND OTTO OV with Rossana Watkins MD 03/06/2017 Menorrhagia STANDARD OV with Rossana Watkins MD 02/07 Ovarian cyst STANDARD OV with Rossana Watkins MD 02/07 Abnormal vaginal bleeding STANDARD OV with Rossana Varghese 02/17/2017 Assessment of dyspnea STANDARD OV with Rossnaa Watkins MD Hypochromic / microcytic anemia STANDARD OV with Rossana sorenson MD 02/17/2017 Pharyngitis WRITE-IN (SAME DAY) with Susan Xie 02/11/2017 Acute bronchitis WRITE-IN (SAME DAY) with Rossana Watkins MD 02/09/2017 Impaired fasting glucose WRITE-IN (SAME DAY) with Rossana Watkins MD 02/09/2017 Pharyngitis WRITE-IN (SAME DAY) with Rossana Watkins MD 02/09/2017 Fatigue STANDARD OV with Susan HallP 017 Impaired fasting glucose STANDARD OV with Susan Xie Fatigue STANDARD OV with Susan HallP 017 Primary snoring STANDARD OV with Susan HallP 017 Iritis in the left eye EMERGENCY ROOM FOLLOW-UP with Roxy Waggoner MD 09/30/2016 Streptococcal sore throat RESOLVING EMERGENCY ROOM FO LLOW-UP with Susan Xie 08/26/2016 Bronchitis WRITE-IN (SAME DAY) with Barry acevedo MD 04/15/2016 Anxiety disorder NOS STANDARD OV with Susan A Jae IMPREGNATOR 2016 Depression STANDARD OV with Susan A Jae IMPREGNATOR 017 Overweight STANDARD OV with Susan A Jae IMPREGNATOR 017 Obesity HOSP I/P F/U with Susan Manzanares Jae IMPREGNATOR 2015 Working diagnosis of abdominal pain RESOLVED HOSP I/P F/U w ith Susan Manzanares Jae IMPREGNATOR 01/24/2016 Alcohol abuse STANDARD OV with Rossana Watkins MD 12/07 Hyperlipidemia STANDARD OV with Rossana Watkins MD 12/07 Obesity STANDARD OV with Rossana Watkins MD 12/07 Depression STANDARD OV with Rossana Watkins MD 11/07 Obesity STANDARD OV with Rossana Watkins MD 11/07 Toxic reaction to animal venom STANDARD OV with Rossana martin MD 11/22/2015 Depression with anxiety STILL IRRITABLE , YELLING, SUTTON STANDARD OV with Rossana Watkins MD 10/25/2015 Dyshidrosis STANDARD OV with Rossana Watkins MD 10/07 Obesity STANDARD OV with Rossana Watkins MD 10/07 Abnormal liver function test STANDARD OV with Rossana oden MD 10/11/2015 Assessment of high irritability STANDARD OV with Rossana sorenson MD 10/11/2015 Episodic mood disorders STANDARD OV with Rossana Watkins MD 10/11/2015 Obesity STANDARD OV with Rossana Watkins MD 06/2015 Abnormal liver function test EMERGENCY ROOM FOLLOW-UP with Michael Watkins MD 09/25/2015 Alcohol abuse EMERGENCY ROOM FOLLOW-UP with Rossana Watkins MD 09/25/2015 Anxiety disorder NOS EMERGENCY ROOM FOLLOW-UP with Rossana Watkins MD 09/25/2015 Obesity EMERGENCY ROOM FOLLOW-UP with Rossana Watkins MD 09/25/2015 Instructions Instructions not supported for this document typeNo Instructions Recorded Medical Equipment - Implanted Devices Includes: Current and historical DevicesNo Medical Equipment Recorded Medications Includes: Current and historical Medications Current Medications (continue as prescribed) Betamethasone Dipropionate 0.05% External Cream 04/17/2020 - 05/17/2020 Provider: Kathryn Freire SERVICE LEARNING COORDINATOR Diagnosis: Irritant contact jae matitis, unspecified cause APPLY TOPICALLY TO AFFECTED AREA TWICE DAILY x 2 WEEKS Phentermine HCl 37.5 MG Oral Tablet 04/17/2020 - 05/17/2020 Provider: Kathryn Freire SERVICE LEARNING COORDINATOR Diagnosis: Other obesity TAKE 1 TAB BY MOUTH ONCE DAILY UPON WAKINGMDD #1 Tessalon Perles 100 MG Oral Capsule 03/21/2020 Prov ider: Rossana Watkins MD Diagnosis: Cough 1 poTID PRN ProAir HFA 108 (90 Base) MCG/ACT Inhalation Aerosol Solution 03/21/2020 Provider: Rossana Watkins MD Diagnosis: Wheezing 2 puffs,4 times a day as needed Imitrex 100 MG Oral Tablet 03/21/2020 Provider: Rossana Watkins MD Diagnosis: Menstrual migraine, not intractable, with status migrainosus 1 STAT W/ CASTANEDA, REPEAT IN 2 HRS X 1. MDD 200 MG QD Effexor XR 75 MG Oral Capsule Extended Release 24 Hour 03/21 Provider: Rossana Watkins MD Diagnosis: Major depressive dis order, recurrent, in remission, unsp 1 every day po busPIRone HCl 15 MG Oral Tablet 03/21/2020 Provider : Rossana Watkins MD Diagnosis: Generalized anxiety disorder 1 tab twice a day Iron 325 (65 Fe) MG Oral Tablet 06/21/2019 Provider : Diagnosis: QD with vit c per Dr. Watkins Vitamin C 500 MG Oral Tablet 06/21/2019 Provider: Diagnosis: QD with iron per Dr. Watkins Past Medications on file Phentermine HCl 37.5 MG Oral Tablet 03/21/2020 - 04/17/2020 Provider: Rossana Watkins MD Diagnosis: Other obesity TAKE 1 TAB BY MOUTH ONCE DAILY UPON WAKINGMDD #1 Phentermine HCl 37.5 MG Oral Tablet 03/20/2020 - 03/20/2020 Provider: Kathryn Freire SERVICE LEARNING COORDINATOR Diagnosis: Other obesity TAKE 1 TAB BY MOUTH ONCE DAILY UPON WAKINGMDD #1 Tessalon Perles 100 MG Oral Capsule 03/20/2020 - 03/20/2020 Provider: Kathryn Freire SERVICE LEARNING COORDINATOR Diagnosis: Cough As needed TID PRN ProAir HFA 108 (90 Base) MCG/ACT Inhalation Aerosol So lution 03/20/2020 - 03/20/2020 Provider: Kathryn Freire SERVICE LEARNING COORDINATOR Diagnosis: Wheezing 2 puffs,4 times a day as needed 2 puffs,4 times a day as needed Imitrex 100 MG Oral Tablet 03/20/2020 - 03/20/2020 Provider: Kathryn Freire SERVICE LEARNING COORDINATOR Diagnosis: Menstrual migraine, not intractable, with status migrainosus 1 STAT W/ CASTANEDA, REPEAT IN 2 HRS X 1. MDD 200 MG QD Effexor XR 75 MG Oral Capsule Extended Release 24 Hour 03/20 - 03/20/2020 Provider: Kathryn Freire SERVICE LEARNING COORDINATOR Diagnosis: Major depressive dis order, recurrent, in remission, unsp 1 every day po busPIRone HCl 15 MG Oral Tablet 03/20/2020 - 03/20/2020 Prov ider: Kathryn Freire SERVICE LEARNING COORDINATOR Diagnosis: Generalized anxiety disorder 1 tab twice a day ProAir HFA 108 (90 Base) MCG/ACT Inhalation Aerosol So lution 06/21/2019 - 03/20/2020 Provider: Rossana Watkins MD Diagnosis: Wheezing 2 puffs,4 times a day as needed 2 puffs,4 times a day as needed Imitrex 100 MG Oral Tablet 06/21/2019 - 03/20/2020 Provider: Rossana Watkins MD Diagnosis: Menstrual migraine, not intractable, with status migrainosus 1 STAT W/ CASTANEDA, REPEAT IN 2 HRS X 1. MDD 200 MG QD ProAir HFA 108 (90 Base) MCG/ACT Inhalation Aerosol So lution 06/21/2019 - 06/21/2019 Provider: Rossana Watkins MD Diagnosis: Wheezing 2 puffs,4 times a day as needed 2 puffs,4 times a day as needed busPIRone HCl 15 MG Oral Tablet 06/21/2019 - 03/20/2020 Prov ider: Rossana Watkins MD Diagnosis: Generalized anxiety disorder 1 tab twice a day Vitamin C 500 MG Oral Tablet 06/21/2019 - 06/21/2019 Provide r: Diagnosis: BIDwith iron per Dr. Watkins Iron 325 (65 Fe) MG Oral Tablet 06/21/2019 - 06/21/2019 Prov ider: Diagnosis: BID with vit c per Dr. June Rodriguez 100 MG Oral Capsule 05/11/2019 - 03/20/2020 Provider: Rossana Watkins MD Diagnosis: Cough As needed TID PRN Omeprazole 20 MG Oral Capsule Delayed Release 05/11/2019 - 0 03/20/2020 Provider: Rossana Watkins MD Diagnosis: Other specified dise ases of esophagus Take as directed QOD Effexor XR 75 MG Oral Capsule Extended Release 24 Hour 05/10 - 03/20/2020 Provider: Rossana Watkins MD Diagnosis: Major depressive dis order, recurrent, in remission, unsp 1 every day po Vitamin C 500 MG Oral Tablet 04/08/2019 - 06/21/2019 Provide r: Diagnosis: tid with iron per Dr. Watkins Iron 325 (65 Fe) MG Oral Tablet 04/08/2019 - 06/21/2019 Prov ider: Diagnosis: tid with vit c per Dr. Watkins Effexor XR 75 MG Oral Capsule Extended Release 24 Hour 04/07 - 05/11/2019 Provider: Rossana Watkins MD Diagnosis: Major depressive dis order, recurrent, in remission, unsp 1 every day po W/ 37.5 MG XR QD Tessalon Perles 100 MG Oral Capsule 04/04/2019 - 05/11/2019 Provider: Rossana Watkins MD Diagnosis: Cough As needed TID PRN Ventolin HFA 108 (90 Base) MCG/ACT Inhalation Aerosol Solution 04/04/2019 - 06/21/2019 Provider: Rossana Watkins MD Diagnosis: Wheezing 2 puffs,4 times a day as needed Omeprazole 20 MG Oral Capsule Delayed Release 04/04/2019 - 0 05/11/2019 Provider: Rossana Watkins MD Diagnosis: Other specified dise ases of esophagus As needed busPIRone HCl 15 MG Oral Tablet 04/04/2019 - 06/21/2019 Prov ider: Rossana Watkins MD Diagnosis: Generalized anxiety disorder 1 tab twice a day Effexor XR 37.5 MG Oral Capsule Extended Release 24 Ho ur 04/04/2019 - 05/11/2019 Provider: Rossana Watkins MD Diagnosis: Other specified anxi ety disorders 1 every day ADDED TO 75 MG XR Ventolin HFA 108 (90 Base) MCG/ACT Inhalation Aerosol Solution 01/04/2019 - 04/04/2019 Provider: Barry Waggoner MD Diagnosis: Wheezing 2 puffs,4 times a day as needed Omeprazole 20 MG Oral Capsule Delayed Release 01/04/2019 - 0 04/04/2019 Provider: Barry Waggoner MD Diagnosis: Other specified dise ases of esophagus 1 Every morning Effexor XR 75 MG Oral Capsule Extended Release 24 Hour 01/04 - 04/04/2019 Provider: Barry Waggoner MD Diagnosis: Major depressive dis order, recurrent, in remission, unsp 1 every day po busPIRone HCl 15 MG Oral Tablet 01/04/2019 - 04/04/2019 Prov ider: Barry Waggoner MD Diagnosis: Generalized anxiety disorder 1 tab twice a day Doxycycline Hyclate 100MG Oral Capsule 08/05/2018 - 08/18/19 19 Provider: Susan Xie Diagnosis: Cellulitis, unspecif ied 1 tab twice a day Ventolin HFA 108 (90 Base)MCG/ACT Inhalation Aerosol S olution 08/05/2018 - 01/04/2019 Provider: Susan Xie Diagnosis: Wheezing 2 puffs,4 times a day as needed Omeprazole 20MG Oral Capsule Delayed Release 08/05/2018 - Provider: Susan Xie Diagnosis: Other specified dise ases of esophagus 1 Every morning busPIRone HCl 15MG Oral Tablet 08/05/2018 - 01/04/2019 Provi jae: Susan Xie Diagnosis: Generalized anxiety disorder 1 tab twice a day Effexor XR 75MG Oral Capsule Extended Release 24 Hour 2018 - 01/04/2019 Provider: Susan Xie Diagnosis: Major depressive dis order, recurrent, in remission, unsp 1 every day po busPIRone HCl 15MG Oral Tablet 06/16/2018 - 08/05/2018 Provi jae: Susan Xie Diagnosis: Generalized anxiety disorder 1 tab twice a day Amoxicillin 875MG Oral Tablet 05/10/2018 - 08/05/2018 Provid er: Rossana Watkins MD Diagnosis: Sebaceous cyst 1 tab twice a day Omeprazole 20MG Oral Capsule Delayed Release 02/17/2018 - Provider: Rossana Watkins MD Diagnosis: Other specified dise ases of esophagus 1 Every morning BusPIRone HCl 15MG Oral Tablet 02/17/2018 - 06/03/2018 Provi jae: Rossana Watkins MD Diagnosis: Generalized anxiety disorder 1 tab twice a day FROM 10 MG PO BID Ventolin HFA 108 (90 Base)MCG/ACT Inhalation Aerosol S olution 02/17/2018 - 08/05/2018 Provider: Rossana Watkins MD Diagnosis: Wheezing 2 puffs,4 times a day as neededREVIEWED BUT NOT DISPENSED Effexor XR 75MG Oral Capsule Extended Release 24 Hour 2017 - 08/03/2018 Provider: Rossana Watkins MD Diagnosis: Major depressive dis order, recurrent, in remission, unsp 1 every day Effexor XR 75MG Oral Capsule Extended Release 24 Hour 2017 - 02/17/2018 Provider: Rossana Watkins MD Diagnosis: Major depressive dis order, recurrent, in remission, unsp 1 every day Amoxicillin 875MG Oral Tablet 01/05/2018 - 02/17/2018 Provid er: Rossana Watkins MD Diagnosis: Cellulitis of right upper limb 1 tab twice a day Naltrexone HCl 50MG Oral Tablet 12/17/2017 - 02/17/2018 Prov ider: Rossana Watkins MD Diagnosis: Alcohol abuse, uncom plicated 1 every day Effexor XR 150MG Oral Capsule, extended-release 24 hour 11/07 - 02/09/2018 Provider: Rossana Watkins MD Diagnosis: Major depressive dis order, recurrent, in remission, unsp 1 every day HAS STOPPED GOING TO [facility] BusPIRone HCl 10MG Oral Tablet 11/17/2017 - 02/17/2018 Provi jae: Rossana Watkins MD Diagnosis: Generalized anxiety disorder 1 tab twice a day BusPIRone HCl 10MG Oral Tablet 10/15/2017 - 11/17/2017 Provi jae: Rossana Watkins MD Diagnosis: Generalized anxiety disorder TID [address]N [address] 2 A DAY Effexor XR 150MG Oral Capsule Extended Release 24 Hour 10/15 - 11/17/2017 Provider: Rossana Watkins MD Diagnosis: Major depressive dis order, recurrent, in remission, unsp 1 every day HAS STOPPED GOING TO [facility] Ventolin HFA 108 (90 Base)MCG/ACT Inhalation Aerosol S olution 10/15/2017 - 02/17/2018 Provider: Rossana Watkins MD Diagnosis: Wheezing 2 puffs,4 times a day as needed Ventolin HFA 108 (90 Base)MCG/ACT Inhalation Aerosol S olution 07/31/2017 - 10/15/2017 Provider: Susan Xie Diagnosis: Wheezing 2 puffs,4 times a day as needed Zithromax 250MG Oral Tablet 07/31/2017 - 10/15/2017 Provider : Susan Nelson IMPREGNATOR Diagnosis: Acute bronchitis due to other specified organisms 2 TABS TODAY, THEN 1 TAB DAILY X 4 DAYS MetFORMIN HCl 500MG Oral Tablet 05/04/2017 - 10/15/2017 Prov ider: Rossana Watkins MD Diagnosis: Impaired fasting glu cose 1 tab twice a day from qd Amoxicillin 875MG Oral Tablet 05/04/2017 - 10/15/2017 Provid er: Rossana Watkins MD Diagnosis: Acute bronchitis due to other specified organisms 1 tab twice a day MetFORMIN HCl 500MG Oral Tablet 05/04/2017 - 05/04/2017 Prov ider: Rossana Watkins MD Diagnosis: Impaired fasting glu cose 1 every day Tessalon Perles 100MG Oral Capsule, conventional 05/04/2017 - 10/15/2017 Provider: Rossana Watkins MD Diagnosis: Cough tid prn Phentermine HCl 37.5MG Oral Capsule, conventional 05/04/2017 - 10/15/2017 Provider: Rossana Watkins MD Diagnosis: Other obesity 1 Every morning upped from 30 mg qd mdd 1 Ventolin HFA 108 (90 Base)MCG/ACT Inhalation Aerosol, solution 05/04/2017 - 07/31/2017 Provider: Rossana Watkins MD Diagnosis: Wheezing 2 puffs,4 times a day as needed Phentermine HCl 37.5MG Oral Capsule 04/08/2017 - 05/04/2017 Provider: Rossana Watkins MD Diagnosis: Other obesity 1 Every morning upped from 30 mg qd mdd 1 Introvale 0.15-0.03MG Oral Tablet 03/10/2017 - 10/15/2017 Pr ovider: Rossana Watkins MD Diagnosis: Excessive and freque nt menstruation with regular cycle 1 tab po QD, #[address] of seasonique d/t ins . Seasonique 0.15-0.03 &0.01MG Oral Tablet 03/06/2017 - 2017 Provider: Rossana Watkins MD Diagnosis: Excessive and freque nt menstruation with regular cycle 1 every day 1ST PILL THIS THURSDAY Vitamin C 500MG Oral Capsule 02/20/2017 - 04/08/2017 Provide r: Rossana Watkins MD Diagnosis: Other iron deficienc y anemias Three times a day po Iron 325 (65 Fe)MG Oral Tablet 02/20/2017 - 04/08/2017 Provi jae: Rossana Watkins MD Diagnosis: Other iron deficienc y anemias Three times a day po PredniSONE 20MG Oral Tablet 02/17/2017 - 03/10/2017 Provider : Rossana Watkins MD Diagnosis: Shortness of breath 1 Every morning w/ food Phentermine HCl 30MG Oral Capsule 02/17/2017 - 10/15/2017 Pr ovider: Rossana Watkins MD Diagnosis: Overweight 1 Every morning mdd 1 Tessalon Perles 100MG Oral Capsule 02/11/2017 - 03/10/2017 P rovider: Susan Nelson IMPREGNATOR Diagnosis: Cough Three times a day Azithromycin 250MG Oral Tablet 02/09/2017 - 02/17/2017 Provi jae: Rossana Watkins MD Diagnosis: Acute bronchitis due to other specified organisms 2 DAY 1, 1 DAYS 2-5 MetFORMIN HCl 500MG Oral Tablet 01/26/2017 - 05/04/2017 Prov ider: Susan Nelson IMPREGNATOR Diagnosis: Impaired fasting glu cose 1 every day Phentermine HCl 30MG Oral Capsule 01/26/2017 - 02/17/2017 Pr ovider: Susan Nelson IMPREGNATOR Diagnosis: Overweight 1 Every morning Acidophilus Oral Capsule, conventional 01/13/2017 - 10/16/19 18 Provider: Diagnosis: Propranolol HCl 60MG Oral Tablet 09/30/2016 - 10/15/2017 Pro vider: Diagnosis: Zithromax Z-Morales 250MG Oral Tablet 04/15/2016 - 08/21/2016 Pr ovider: Barry Waggoner MD Diagnosis: Bronchitis, not spec ified as acute or chronic 2 tabs now, then 1 tab qd x 4 days Tessalon Perles 100MG Oral Capsule 04/15/2016 - 09/30/2016 P rovider: Barry Waggoner MD Diagnosis: Bronchitis, not spec ified as acute or chronic Take as directed 1 po tid prn cough Phentermine HCl 30MG Oral Capsule 03/26/2016 - 03/10/2017 Pr ovider: Susan Xie Diagnosis: Other obesity 1 Every morning MDD 1 Effexor XR 150MG Oral Capsule Extended Release 24 Hour 03/26 - 10/15/2017 Provider: Diagnosis: Behavior Health Phentermine HCl 30MG Oral Capsule 02/25/2016 - 03/26/2016 Pr ovider: Barry Waggoner MD Diagnosis: Other obesity 1 Every morning MDD 1 Effexor XR 37.5MG Oral Capsule Extended Release 24 Hour 02/06 - 03/26/2016 Provider: Diagnosis: Phentermine HCl 30MG Oral Capsule, conventional 01/24/2016 - 02/25/2016 Provider: Susan Xie Diagnosis: Other obesity 1 Every morning MDD 1 Citalopram Hydrobromide 20MG Oral Tablet 01/24/2016 - 2015 Provider: Diagnosis: Take one and a half tabs by mouth Sertraline HCl 100MG Oral Tablet 12/25/2015 - 01/24/2016 Pro vider: Rossana Watkins MD Diagnosis: Other depressive epi sodes TAKE ONE TABLET BY MOUTH EVERY MORNING Phentermine HCl 30MG Oral Capsule 12/20/2015 - 01/24/2016 Pr ovider: Rossana Watkins MD Diagnosis: Other obesity 1 Every morning MDD 1 Phentermine HCl 30MG Oral Capsule, conventional 11/22/2015 - 12/20/2015 Provider: Rossana Watkins MD Diagnosis: Other obesity 1 Every morning MDD 1 Elocon 0.1 % Cream 10/25/2015 - 11/22/2015 Provider: Rossana Watkins MD Diagnosis: Dyshidrosis [pomphol yx] APPLY TOPICALLY QD TO BID NO >2 WEEKS STRETCH Sertraline HCl 100 MG Tablet 10/25/2015 - 12/25/2015 Provide r: Rossana Watkins MD Diagnosis: Other depressive epi sodes 1 Every morning UPPED FROM 50 MG QD Phentermine HCl 15 MG Capsule 10/25/2015 - 12/20/2015 Provid er: Rossana Watkins MD Diagnosis: Other obesity 1 Every morning MDD 1 Sertraline HCl 50 MG Tablet 09/25/2015 - 10/25/2015 Provider : Rossana Watkins MD Diagnosis: Other specified anxi ety disorders 1 every day Medications Administered Includes: Administered Medications in patient's chartNo Administered Medications Recorded Vital Signs Includes: Vital Signs from 04/17/2019 through 04/17/2020 Vital Name 04/17/2020 02:32P 03/20/2020 08:51A 07/11/2019 11:25A 07/04/2019 03:15P 06/21/2019 01:01P Blood Pressure Sitting R 120/68 120/68 BP Cuff Size Regular Regular Regular Regular Regular Pulse Rate-Sitting (bpm) 77 74 60 75 69 Respiration Rate (breaths/min) 22 20 22 24 24 Temp-Temporal 97.6 97.5 98 98.7 98.1 Height (in) 65.8 65.8 65.8 65.8 65.8 Weight (lb) 209 228 214 216 Body Mass Index (kg/m2) 33.9 37.0 34.8 3 5.1 Body Surface Area (m2) 2.03 2.11 2.05 2. 06 Oxygen Saturation (%) 98 94 99 98 98 Flow Rate (l/min) (None (Room Air)) (None (Room Air)) (None (Lizzie m Air)) (None (Room Air)) (None (Room Air)) FiO2 (%) 21 21 21 21 21 Blood Pressure Sitting L 120/84 122/68 122/72 Vital Name 05/11/2019 03:47P BP Cuff Size Regular Pulse Rate-Sitting (bpm) 88 Respiration Rate (breaths/min) 22 Temp-Temporal 97.8 Height (in) 65.8 Weight (lb) 217 Body Mass Index (kg/m2) 35.2 Body Surface Area (m2) 2.07 Oxygen Saturation (%) 98 Flow Rate (l/min) (None (Room Air)) FiO2 (%) 21 Blood Pressure Sitting L 118/68 Results Includes: Results from 04/17/2019 through 04/17/2020 Pathology Report [facility] Ordered by Rossana Watkins MD on 07/11/2019 Collected: 07/11/2019 Reported: 07/13/2019 11:05 tel : . MATER None Note: Material submitted: .neck - BACK OF NECK/HAIRLINE . FDIAG None Note: Diagnosis: INTRADERMAL NEVUS, BACK OF NECK/HAIRLINE.CIF 07/13/2019 1023 Local . SOUT None Note: Electronically signed: .Paolo Puente MD, Pathologist . GROSSD None Note: Gross description: .Specimen received in formalin labeled "lesion back of neck hairline" is a0.6 x 0.4 cm pollock to dusky kwok pollock skin shave. The specimen is bisectedand totally submitted. DE/KWI 07/12/2019 1130 Local . CPT None Note: CPT .979480 . CICD10 None Note: Clinician provided ICD-10:D23.9 . PICD10 None Note: Pathologist provided ICD-10:D22.4 Reviewed by Rossana Watkins MD on 2019; All test results are final unless otherwise noted. [facility] Ordered by Rossana Watkins MD on 06/17/[address] [place] [address], [id number] Collected: 06/17/2019 Reported: 06/17/2019 08:58 tel :[phone] FERRITIN 76 NG/ML (8-252) N (Normal) Reviewed by Rossana Watkins MD on 2019; All test results are final unless otherwise noted. Reported [facility] Ordered by Rossana Watkins MD on 06/17/[address] [place] [address], [id number] Collected: 06/17/2019 Reported: 06/17/2019 08:58 tel :[phone] Reported Physicians See Note None Note: Reported Physicians:Ordering: Rossana Neal AAttending: Lety Watkins To: Rossana Watkins Reviewed by Rossana Watkins MD on 2019; All test results are final unless otherwise noted. RETICULOCYTE COUNT SYEX [facility] Ordered by Rossana Watkins MD on 06/17/[address] [place] [address], [id number] Collected: 06/17/2019 Reported: 06/17/2019 08:37 tel :[phone] RETICULOCYTE % 1.2 % (0.5-1.5) N (Normal) RETICULOCYTE # 56.3 9/L (17-77) N (Normal) RETIC HEMOGLOBIN EQUIVALENT 35.6 pg (24-36) N (Normal) Reviewed by Rossana Watkins MD on 2019; All test results are final unless otherwise noted. Reported Phys[facility] Ordered by Rossana Watkins MD on 06/17/[address] [place] [address], [id number] Collected: 06/17/2019 Reported: 06/17/2019 08:37 tel :[phone] Reported Physicians See Note None Note: Reported Physicians:Ordering: Rossana Neal AAttending: Rossana WatkinsCopglen To: Rossana Watkins Reviewed by Rossana Watkins MD on 2019; All test results are final unless otherwise noted. TOTAL IRON BINDING CAPACIT [facility] Ordered by Rossana Watkins MD on 06/17/[address] [place] [address], [id number] Collected: 06/17/2019 Reported: 06/17/2019 08:58 tel :[phone] IRON (FE) 66 UG/DL (50-170) N (Normal) TOTAL IRON BINDING CAPACITY 294 UG/DL (250-450) N (Normal) PERCENT SATURATION 22.4 % (13.2-45.0) N (Normal) Reviewed by Rossana Watkins MD on 2019; All test results are final unless otherwise noted. Reported [facility] Ordered by Rossana Watkins MD on 06/17/[address] [place] [address], [id number] Collected: 06/17/2019 Reported: 06/17/2019 08:58 tel :[phone] Reported Physicians See Note None Note: Reported Physicians:Ordering: Rossana Neal AAttending: Rossana WatiknsCopglen To: Rossana Watkins Reviewed by Rossana Watkins MD on 2019; All test results are final unless otherwise noted. COMPLETE BLOOD COUNT [facility] Ordered by Rossana Watkins MD on 06/17/[address] [place] [address], [id number] Collected: 06/17/2019 Reported: 06/17/2019 08:37 tel :[phone] WHITE BLOOD COUNT 9.5 3/uL (4.0-10.0) N (Normal) RED BLOOD COUNT 4.54 6/uL (4.00-5.40) N (Normal) HEMOGLOBIN 13.1 g/dl (12.0-15.5) N (Normal) HEMATOCRIT 39.5 % (36.0-47.0) N (Normal) MEAN CORPUSCULAR VOLUME 87.0 fl (80.0-96.0) N (Normal) MEAN CORPUSCULAR HEMOGLOBIN 28.9 pg (27.0-33.0) N (Normal) MEAN CORPUSCULAR HGB CONC 33.2 g/dl (32.0-36.5) N (Normal) RED CELL DISTRIBUTION WIDTH 15.2 % (11.5-14.5) H (High) PLATELET COUNT, AUTOMATED 378 3/uL (150-450) N (Normal) NUCLEATED RED BLOOD CELL % 0.0 % (0-0) N (Normal) Reviewed by Rossana Watkins MD on 2019; All test results are final unless otherwise noted. Reported Physicians [facility] Ordered by Rossana Watkins MD on 06/17/[address] [place] [address], [id number] Collected: 06/17/2019 Reported: 06/17/2019 08:37 tel :[phone] Reported Physicians See Note None Note: Reported Physicians:Ordering: Rossana Neal AAttending: Lety Watkins To: Rossana Watkins Reviewed by Rossana Watkins MD on 2019; All test results are final unless otherwise noted. History of Present Illness History of Present Illness not supported for this document typeNo History of Present Illness Recorded Social History Description Last Updated Social history unchanged 04/17/2020 Good exercise habits 03/20/2020 No caffeine use 03/20/2020 Not a current smoker 03/20/2020 Not using alcohol 03/20/2020 Not using drugs 03/20/2020 No beer consumption 06/21/2019 No chocolate consumption 06/21/2019 No coffee consumption 06/21/2019 No cola consumption 06/21/2019 No hard liquor consumption 06/21/2019 No tea consumption 06/21/2019 WORKS AT [employer] 2 YRS ~FINISHED [employer] 2 YRS VOCATION ~L PN DEGREE 04/04/2019 control method tubal ligation 01/04/2019 Life circumstance event MET HER HUBBY DEC 2017, [facility] ED July09/29/2018 Wine consumption 09/29/2018 No physical disability 11/17/2017 Normal activities of daily living 11/17/2017 Tubal ligation as control AND CONDOMS 8 Smoking Status Unknown Procedures and Surgical History Includes: Procedures from 04/17/2019 through 04/17/2020 Procedures Code Diagnosis Performing Provider Service Location Service Date SHAVE SKIN LESION 0.6-1.0cm (face,nose) [address]502 Nevus, n on-neoplastic Rossana Watkins MD Family Medicine [facility] 07/11/2019 Surgical History Last Updated No history of hysterectomy 01/04/2019 Medical History Includes: Medical History in patient's chart Description Last Updated PARTIAL HYST ~AP ~G7 1 TAB, 2 SAB ~ 4 ~BTL ~ALLERGY:NUBAIN (ITCHY), KEFLEX MOUTH BLISTERS 04/04/2019 No history of coronary artery disease 04/04/2019 No history of essential hypertension 04/04/2019 No history of hyperlipidemia 04/04/2019 History of cervical dysplasia 11/17/2017 Recent change in medical history STREP THROAT LAST WE EK. TX W/ AMOX BID 11/17/2017 Assessment of bee or wasp sting 11/22/2015 Family History Includes: Family History in patient's chart Description Last Updated MA 63 YO WELL ~FA 69 YO HTN,OVERWEIGHT ,T2DM ON INSULIN ~SIS (4) 49 YO MS NOT DISABLED THE OTHER 3 WELL EXCEPT JOEL W/ ASTHMA 42 YO ~SONS (4) 16 YO WELL, 13 YO ASTHMA 11 YO WELL 7 YO WELL 04/04/2019 Review of Systems Review of Systems not supported for this document typeNo Review of Systems Recorded Mental Status Mental Status not supported for this document typeNo Mental Status Recorded Functional Status Functional Status not supported for this document typeNo Functional Status Recorded Physical Exam Physical Exam not supported for this document typeNo Physical Exam Recorded Immunizations Includes: Immunizations in patient's chart Vaccine Dose # Date Site Reaction(s) Status Source Influenza,NOS 1 12/20/2015 Complete (Refus ed) [facility] PCV (Pneumovax 23) ages 2+ 1 12/20/2015 Co mplete (Refused) [facility] Td 1 12/20/2015 Complete (Refused) [facility] Allergies Includes: Active, inactive, and resolved Allergies Substance Type Reaction Onset Date - Time Resolved Date - Ti me Status Nubain Allergy hot and itcy 09/25/2015 - 12:00AM Ac tive Keflex Allergy Skin Rashes, Hives 09/25/2015 - 12:00AM Active Encounters Includes: Encounters from 04/17/2019 through 04/17/2020 Encounter Provider Location Date Check-In Time Check-Out Time D iagnosis STANDARD [facility] [place] Mary Freire NP [facility], C 04/17/2020 2:32PM 2:52PM Obesity, Contact Dermatitis Irritant [facility] [place] Mary Freire [facility], [facility] 03/20/2020 8:45AM 9:46AM Generalized Anxiety Disorder , Obesity, Depression SURGERY Rossana Watkins MD [facility] 07/11/19 20 11:23AM 11:56AM Compound Nevus STANDARD OV Rossana Watkins MD [facility] 020 3:15PM 3:44PM Non-neoplastic Nevus STANDARD OV Rossana Watkins MD [facility] 1:00PM 1:30PM Depression with Anxiety, Organic Sleep A pnea Obstructive, Dermatitis, Alcohol Disorders STANDARD OV Rossana Watkins MD [facility], 3:44PM 4:10PM Organic Sleep Apnea Obstructive Adult, H eadache Syndromes, Alcohol Disorders, Obesity Insurance Includes: Active Insurance Policies Plan Name Member ID Group # Subscriber Relationship Effective Da juan josé 1 - [employer] [id number] Shandra, Mariela Martinez 2 - Medicaid [id number] Estrella Devi Self Advance Directives Includes: Current Advance DirectivesNo Advance Directives Recorded Health Concerns Includes: Active Health ConcernsNo Active Health Concerns Recorded Goals Includes: Active GoalsNo Active Goals Recorded Interventions Includes: Interventions for active GoalsNo Interventions Recorded Evaluations & Outcomes Includes: Evaluations & Outcomes for active GoalsNo Outcomes Recorded
--- OUTSIDE RECORDS SUMMARY | 2020-04-20 06:55 | CCD ---
Author Author [facility] Organization [facility] Address Unknown Phone Unavailable Care Team Providers Care Corporate Recycling Manager Name Role Phone Jeff Watkins MD Unavailable Unavailable Jeff Watkins MD Unavailable Unavailable Jeff Watkins MD Unavailable Unavailable Jeff Watkins MD Unavailable Unavailable June, Jeff Tracy MD Unavailable Unavailable June, Jeff Tracy MD Unavailable Unavailable June, Jeff Tracy MD Unavailable Unavailable June, Jeff Tracy MD Unavailable Unavailable June, Jeff Tracy MD Unavailable Unavailable June, Jeff Tracy MD Unavailable Unavailable June, Jeff Tracy MD Unavailable Unavailable June, Jeff Tracy MD Unavailable Unavailable June, Jeff Tracy MD Unavailable Unavailable June, Jeff Tracy MD Unavailable Unavailable June, Jeff Tracy MD Unavailable Unavailable June, Jeff Tracy MD Unavailable Unavailable June, Jeff Tracy MD Unavailable Unavailable June, Jeff Tracy MD Unavailable Unavailable June, Jeff Tracy MD Unavailable Unavailable June, Jeff Tracy MD Unavailable Unavailable June, Jeff Tracy MD Unavailable Unavailable June, Jeff Tracy MD Unavailable Unavailable June, Jeff Tracy MD Unavailable Unavailable June, Jeff Tracy MD Unavailable Unavailable June, Jeff Tracy MD Unavailable Unavailable June, Jeff Tracy MD Unavailable Unavailable June, Jeff Tracy MD Unavailable Unavailable June, Jeff Tracy MD Unavailable Unavailable June, Jeff Tracy MD Unavailable Unavailable June, Jeff Tracy MD Unavailable Unavailable June, Jeff Tracy MD Unavailable Unavailable June, Jeff Tracy MD Unavailable Unavailable June, Jeff Tracy MD Unavailable Unavailable June, Jeff Tracy MD Unavailable Unavailable June, Jeff Tracy MD Unavailable Unavailable June, Jeff Tracy MD Unavailable Unavailable June, Jeff Tracy MD Unavailable Unavailable June, Jeff Tracy MD Unavailable Unavailable June, Jeff Tracy MD Unavailable Unavailable June, Jeff Tracy MD Unavailable Unavailable June, Jeff Tracy MD Unavailable Unavailable June, Jeff Tracy MD Unavailable Unavailable June, Jeff Tracy MD Unavailable Unavailable June, Jeff Tracy MD Unavailable Unavailable June, Jeff Tracy MD Unavailable Unavailable June, Jeff Tracy MD Unavailable Unavailable June, Jeff Tracy MD Unavailable Unavailable June, Jeff Tracy MD Unavailable Unavailable June, Jeff Tracy MD Unavailable Unavailable June, Jeff Tracy MD Unavailable Unavailable June, Jeff Tracy MD Unavailable Unavailable June, Jeff Tracy MD Unavailable Unavailable June, Jeff Tracy MD Unavailable Unavailable June, Jeff Tracy MD Unavailable Unavailable June, Jeff Tracy MD Unavailable Unavailable June, Jeff Tracy MD Unavailable Unavailable June, Jeff Tracy MD Unavailable Unavailable June, Jeff Tracy MD Unavailable Unavailable June, Jeff Tracy MD Unavailable Unavailable June, Jeff Tracy MD Unavailable Unavailable June, Jeff Tracy MD Unavailable Unavailable June, Jeff Tracy MD Unavailable Unavailable June, Jeff Tracy MD Unavailable Unavailable June, Jeff Tracy MD Unavailable Unavailable June, Jeff Tracy MD Unavailable Unavailable June, Jeff Tracy MD Unavailable Unavailable June, Jeff Tracy MD Unavailable Unavailable June, Jeff Tracy MD Unavailable Unavailable June, Jeff Tracy MD Unavailable Unavailable June, Jeff Tracy MD Unavailable Unavailable June, Jeff Tracy MD Unavailable Unavailable June, Jeff Tracy MD Unavailable Unavailable June, Jeff Tracy MD Unavailable Unavailable June, Jeff Tracy MD Unavailable Unavailable June, Jeff Tracy MD Unavailable Unavailable June, Jeff Tracy MD Unavailable Unavailable June, Jeff Tracy MD Unavailable Unavailable June, Jeff Tracy MD Unavailable Unavailable June, Jeff Tracy MD Unavailable Unavailable June, Jeff Tracy MD Unavailable Unavailable June, Jeff Tracy MD Unavailable Unavailable June, Jeff Tracy MD Unavailable Unavailable June, Jeff Tracy MD Unavailable Unavailable June, Jeff Tracy MD Unavailable Unavailable June, Jeff Tracy MD Unavailable Unavailable June, Jeff Tracy MD Unavailable Unavailable June, Jeff Tracy MD Unavailable Unavailable June, Jeff Tracy MD Unavailable Unavailable June, Jeff Tracy MD Unavailable Unavailable June, Jeff Tracy MD Unavailable Unavailable June, Jeff Tracy MD Unavailable Unavailable June, Jeff Tracy MD Unavailable Unavailable June, Jeff Tracy MD Unavailable Unavailable June, Jeff Tracy MD Unavailable Unavailable June, Jeff Tracy MD Unavailable Unavailable June, Jeff Tracy MD Unavailable Unavailable June, Jeff Tracy MD Unavailable Unavailable June, Jeff Tracy MD Unavailable Unavailable June, Jeff Tracy MD Unavailable Unavailable June, Jeff Tracy MD Unavailable Unavailable June, Jeff Tracy MD Unavailable Unavailable June, Jeff Tracy MD Unavailable Unavailable June, Jeff Tracy MD Unavailable Unavailable June, Jeff Tracy MD Unavailable Unavailable June, Jeff Tracy MD Unavailable Unavailable June, Jeff Tracy MD Unavailable Unavailable June, Jeff Tracy MD Unavailable Unavailable June, Jeff Tracy MD Unavailable Unavailable June, Jeff Tracy MD Unavailable Unavailable June, Jeff Tracy MD Unavailable Unavailable June, Jeff Tracy MD Unavailable Unavailable June, Jeff Tracy MD Unavailable Unavailable June, Jeff Tracy MD Unavailable Unavailable June, Jeff Tracy MD Unavailable Unavailable June, Jeff Tracy MD Unavailable Unavailable June, Jeff Tracy MD Unavailable Unavailable June, Jeff Tracy MD Unavailable Unavailable June, Jeff Tracy MD Unavailable Unavailable June, Jeff Tracy MD Unavailable Unavailable June, Jeff Tracy MD Unavailable Unavailable June, Jeff Tracy MD Unavailable Unavailable June, Jeff Tracy MD Unavailable Unavailable June, Jeff Tracy MD Unavailable Unavailable June, Jeff Tracy MD Unavailable Unavailable June, Jeff Tracy MD Unavailable Unavailable June, Jeff Tracy MD Unavailable Unavailable June, Jeff Tracy MD Unavailable Unavailable June, Jeff Tracy MD Unavailable Unavailable June, Jeff Tracy MD Unavailable Unavailable June, Jeff Tracy MD Unavailable Unavailable June, Jeff Tracy MD Unavailable Unavailable June, Jeff Tracy MD Unavailable Unavailable June, Jeff Tracy MD Unavailable Unavailable June, Jeff Tracy MD Unavailable Unavailable June, Jeff Tracy MD Unavailable Unavailable June, Jeff Tracy MD Unavailable Unavailable June, Jeff Tracy MD Unavailable Unavailable June, Jeff Tracy MD Unavailable Unavailable June, Jeff Tracy MD Unavailable Unavailable June, Jeff Tracy MD Unavailable Unavailable June, Jeff Tracy MD Unavailable Unavailable June, Jeff Tracy MD Unavailable Unavailable June, Jeff rTacy MD Unavailable Unavailable June, Jeff Tracy MD Unavailable Unavailable June, Jeff Tracy MD Unavailable Unavailable June, Jeff Tracy MD Unavailable Unavailable June, Jeff Tracy MD Unavailable Unavailable June, Jeff Tracy MD Unavailable Unavailable June, Jeff Tracy MD Unavailable Unavailable June, Jeff Tracy MD Unavailable Unavailable June, Jeff Tracy MD Unavailable Unavailable June, Jeff Tracy MD Unavailable Unavailable BULLARD, Carol ZALDIVAR Unavailable Unavailable BULLARD, M ZULLY PA Unavailable Unavailable BULLARD, M ZULLY PA Unavailable Unavailable BULLARD, M ZULLY PA Unavailable Unavailable BULLARD, M ZULLY PA Unavailable Unavailable BULLARD, M ZULLY PA Unavailable Unavailable BULLARD, M ZULLY PA Unavailable Unavailable BULLARD, M ZULLY PA Unavailable Unavailable BULLARD, M ZULLY PA Unavailable Unavailable BULLARD, M ZULLY PA Unavailable Unavailable BULLARD, M ZULLY PA Unavailable Unavailable BULLARD, M ZULLY PA Unavailable Unavailable BULLARD, M ZULLY PA Unavailable Unavailable BULLARD, M ZULLY PA Unavailable Unavailable BULLARD, M ZULLY PA Unavailable Unavailable BULLARD, M ZULLY PA Unavailable Unavailable BULLARD, M ZULLY PA Unavailable Unavailable BULLARD, M ZULLY PA Unavailable Unavailable BULLARD, M ZULLY PA Unavailable Unavailable BULLARD, M ZULLY PA Unavailable Unavailable BULLARD, M ZULLY PA Unavailable Unavailable BULLARD, M ZULLY PA Unavailable Unavailable BULLARD, M ZULLY PA Unavailable Unavailable BULLARD, M ZULLY PA Unavailable Unavailable BULLARD, M ZULLY PA Unavailable Unavailable BULLARD, M ZULLY PA Unavailable Unavailable BULLARD, M ZULLY PA Unavailable Unavailable BULLARD, M ZULLY PA Unavailable Unavailable BULLARD, M ZULLY PA Unavailable Unavailable BULLARD, M ZULLY PA Unavailable Unavailable BULLARD, M ZULLY PA Unavailable Unavailable BULLARD, M ZULLY PA Unavailable Unavailable BULLARD, M ZULLY PA Unavailable Unavailable Berthold, Mariae Bronx OPERATIONS MANAGER Unavailable Unavailable Tani, Mariae Bronx OPERATIONS MANAGER Unavailable Unavailable Berthold, Mariae Kathryn OPERATIONS MANAGER Unavailable Unavailable Berthold, Mariae Kathryn OPERATIONS MANAGER Unavailable Unavailable Tani, Mariae Bronx OPERATIONS MANAGER Unavailable Unavailable Tani, Mariae Kathryn OPERATIONS MANAGER Unavailable Unavailable Tani, Mariae Bronx OPERATIONS MANAGER Unavailable Unavailable Tani, Mariae Kathryn OPERATIONS MANAGER Unavailable Unavailable Tani, Mariae Kathryn OPERATIONS MANAGER Unavailable Unavailable Berthold, Mariae Bronx OPERATIONS MANAGER Unavailable Unavailable Tani, Mariae Kathryn OPERATIONS MANAGER Unavailable Unavailable Berthold, Mariae Bronx OPERATIONS MANAGER Unavailable Unavailable Tani, Mariae Bronx OPERATIONS MANAGER Unavailable Unavailable Tani, Mariae Bronx OPERATIONS MANAGER Unavailable Unavailable Re-disclosure Warning The records that you are about to access may contain information from federally-assisted alcohol or drug abuse programs. If such information is present, then the following federally mandated warning applies: This information has been disclosed to you from records protected by federal confidentiality rules (42 CFR part 2). The federal rules prohibit you from making any further disclosure of this information unless further disclosure is expressly permitted by the written consent of the person to whom it pertains or as otherwise permitted by 42 CFR part 2. A general authorization for the release of medical or other information is NOT sufficient for this purpose. The Federal rules restrict any use of the information to criminally investigate or prosecute any alcohol or drug abuse patient.The records that you are about to access may contain highly sensitive health information, the redisclosure of which is protected by Article 27-F of the [facility] Public Health law. If you continue you may have access to information: Regarding HIV / AIDS; Provided by facilities licensed or operated by the [facility] Office of Mental Health; or Provided by the [facility] Office for People With Developmental Disabilities. If such information is present, then the following [facility] mandated warning applies: This information has been disclosed to you from confidential records which are protected by state law. State law prohibits you from making any further disclosure of this information without the specific written consent of the person to whom it pertains, or as otherwise permitted by law. Any unauthorized further disclosure in violation of state law may result in a fine or halfway sentence or both. A general authorization for the release of medical or other information is NOT sufficient authorization for further disc losure. Allergies and Adverse Reactions Type Description Substance Reaction Status Data Source(s ) Keflex Keflex Cephalexin 750 MG Oral Capsule [Keflex] rash Active eCW1 ([facility]) Nubain Nubain Nubain pruritis Active eCW1 ([facility]) Family History Family Member Name Family Member Gender Family Member Status Date o f Status Description Data Source(s) Unknown Unknown Problem MEDENT ([facility], ) Unknown Unknown Problem MEDENT ([facility], ) Unknown Unknown Problem MEDENT ([facility], ) Unknown Unknown Problem MEDENT ([facility], ) Unknown Unknown Problem MEDENT ([facility], ) Unknown Unknown Problem MEDENT ([facility], ) Unknown Unknown Problem MEDENT ([facility], ) Unknown Unknown Problem MEDENT ([facility], ) Encounters Encounter Providers Location Date Indications Data Source(s ) Outpatient<td ID="encounterTypeDescripti onID0">STANDARD OV</td><td>Kathryn Freire NP</td><td>[facility],</td><td>04/17/2020</td><td>2:32PM</td><td>2:52PM</td><td><content ID="encounterDiagnosisID0-0">Obesity</content>, <content ID="encounterDiagnosisID0-1">Contact Dermatitis Irritant</content></td> Attender: Kathryn Freire NP [facility], 04/17/2020 02:32:00 PM EST - 04/17/2020 02:52:00 PM EST Contact Dermatitis IrritantObesity NALLELY ([facility]) Contact Dermatitis Irritant Obesity Outpatient<td ID="encounterTypeDescripti onID1">STANDARD OV</td><td>Kathryn Freire NP</td><td>[facility],</td><td>03/20/2020</td><td>8:45AM</td><td>9:46AM</td><td><content ID="encounterDiagnosisID1-0">Generalized Anxiety Disorder</content>, <content ID="encounterDiagnosisID1-1">Obesity</content>, <content ID="encounterDiagnosisID1-2">Depression</content></td> Attender: Kathryn Freire NP [facility], 03/20/2020 08:45:00 AM EST - 03/20/2020 09:46:00 AM EST Generalized Anxiety DisorderObesityDepression NALLELY ([facility]) Generalized Anxiety Disorder Obesity Depression Outpatient<td ID="encounterTypeDescripti onID2">SURGERY</td><td>Mell Watkins MD</td><td>[facility],</td><td>07/11/2019</td><td>11:23AM</td><td>11:56AM</td><td><content ID="encounterDiagnosisID2-0">Compound Nevus</content></td> Attender: Mell Watkins MD [facility], 07/11/2019 11:23:00 AM EDT - 07/11/2019 11:56:00 AM EDT Compound NevusCompound Nevus NALLELY ([facility]) Compound Nevus Compound Nevus Outpatient<td ID="encounterTypeDescripti onID3">STANDARD OV</td><td>Mell Watkins MD</td><td>[facility],</td><td>07/04/2019</td><td>3:15PM</td><td>3:44PM</td><td><content ID="encounterDiagnosisID3-0">Non-neoplastic Nevus</content></td> Attender: Mell Watkins MD [facility], 07/04/2019 03:15:00 PM EDT - 07/04/2019 03:44:00 PM EDT Non-neoplastic NevusNon-neoplastic Nevus Non- neoplastic Nevus NALLELY ([facility]) Non-neoplastic Nevus Non-neoplastic Nevus Non-neoplastic Nevus Outpatient<td ID="encounterTypeDescripti onID4">STANDARD OV</td><td>Mell Watkins MD</td><td>[facility]</td><td>06/21/2019</td><td>1:00PM</td><td>1:30PM</td><td><content ID="encounterDiagnosisID4-0">Depression with Anxiety</content>, <content ID="encounterDiagnosisID4-1">Organic Sleep Apnea Obstructive</content>, <content ID="encounterDiagnosisID4-2">Dermatitis</content>, <content ID="encounterDiagnosisID4-3">Alcohol Disorders</content></td> Attender: Mell Watkins MD [facility], 06/21/2019 01:00:00 PM EDT - 06/21/2019 01:30:00 PM EDT DermatitisOrganic Sleep Apnea Obstructiv eDepression with AnxietyDermatitisOrganic Sleep Apnea ObstructiveDepression with AnxietyDermatitisOrganic Sleep Apnea ObstructiveDepression with AnxietyDermati tisOrganic Sleep Apnea ObstructiveDepression with AnxietyAlcohol DisordersAlcohol DisordersAlcohol DisordersAlcohol Disorders NALLELY ([facility]) Dermatitis Organic Sleep Apnea Obstructive Depression with Anxiety Dermatitis Organic Sleep Apnea Obstructive Depression with Anxiety Dermatitis Organic Sleep Apnea Obstructive Depression with Anxiety Dermatitis Organic Sleep Apnea Obstructive Depression with Anxiety Alcohol Disorders Alcohol Disorders Alcohol Disorders Alcohol Disorders Outpatient Attender: ZULLY [place]/Titus/Jesse/Rolando velasquez 06/01/2019 01:00:00 PM EDT MEDENT ([facility], ) Outpatient<td ID="encounterTypeDescripti onID5">STANDARD OV</td><td>Mell Watkins MD</td><td>[facility]</td><td>05/11/2019</td><td>3:44PM</td><td>4:10PM</td><td><content ID="encounterDiagnosisID5-0">Organic Sleep Apnea Obstructive Adult</content>, <content ID="encounterDiagnosisID5-1">Headache Syndromes</content>, <content ID="encounterDiagnosisID5-2">Alcohol Disorders</content>, <content ID="encounterDiagnosisID5-3">Obesity</content></td> Attender: Mell Watkins MD [facility] 05/11/2019 03:44:00 PM EST - 05/11/2019 04:10:00 PM EST Headache SyndromesOrganic Sleep Apnea Ob structive AdultHeadache SyndromesOrganic Sleep Apnea Obstructive AdultHeadache SyndromesOrganic Sleep Apnea Obstructive AdultHeadache SyndromesOrganic Sleep Apnea Obstructive AdultHeadache SyndromesOrganic Sleep Apnea Obstructive AdultObesityAlcohol DisordersObesityAlcohol DisordersObesityAlcohol DisordersObesityAlcohol DisordersObesityAlcohol Disorders NALLELY ([facility]) Headache Syndromes Organic Sleep Apnea Obstructive Adult Headache Syndromes Organic Sleep Apnea Obstructive Adult Headache Syndromes Organic Sleep Apnea Obstructive Adult Headache Syndromes Organic Sleep Apnea Obstructive Adult Headache Syndromes Organic Sleep Apnea Obstructive Adult Obesity Alcohol Disorders Obesity Alcohol Disorders Obesity Alcohol Disorders Obesity Alcohol Disorders Obesity Alcohol Disorders Outpatient<td ID="encounterTypeDescripti onID4">CLINICAL USE ONLY</td><td>Mell Watkins MD</td><td>[facility]</td><td>04/08/2019</td><td></td> Attender: Mell Watkins MD [facility], 04/08/2019 11:10:00 AM EST - 04/08/2019 11:59:00 PM SABINO BROWNING ([facility]) Outpatient Attender: Mell Watkins MDConsultant: Mell martin MD 04/04/2019 04:15:00 PM EST - 04/04/2019 05:15:00 PM [facility] Outpatient<td ID="encounterTypeDescripti onID5">ANNUAL PHYSICAL EXAM</td><td>Mell Watkins MD</td><td>[facility]</td><td>04/04/2019</td><td><content ID="encounterDiagnosisID5- 0">Assessment of Feeling Tired (fatigue)</content>, <content ID="encounterDiagnosisID5-1">Organic Sleep Apnea Obstructive Adult</content>, <content ID="encounterDiagnosisID5-2">Depression with Anxiety</content>, <content ID="encounterDiagnosisID5-3">Assessment of Cough</content>, <content ID="encounterDiagnosisID5-4">Anemia Normochromic, Normocytic</content>, <content ID="encounterDiagnosisID5-5">Menopause</content>, <content ID="encounterDiagnosisID5-6">Obesity</content>, <content ID="encounterDiagnosisID5-7">Routine History & Physical Adult Without Abnormal Findings</content></td> Attender: Mell Watkins MD [facility], 04/04/2019 02:27:00 PM EST - 04/04/2019 03:46:00 PM ES T Routine History & Physical Adult Without Abnormal FindingsMenopauseAnemia Normochromic, NormocyticAssessment of CoughDepression with AnxietyOrganic Sleep Apnea Obstructive AdultRoutine History & Physical Adult Without Abnormal Findings MenopauseAnemia Normochromic, NormocyticAssessment of CoughDepression with AnxietyOrganic Sleep Apnea Obstructive AdultRoutine History & Physical Adult Without Abnormal FindingsMenopauseAnemia Normochromic, NormocyticAssessment of CoughDepression with AnxietyOrganic Sleep Apnea Obstructive AdultRoutine History & Physical Adult Without Abnormal FindingsMenopauseAnemia Normochromic, NormocyticAssessment of CoughDepression with AnxietyOrganic Sleep Apnea Obstructive AdultRoutine History & Physical Adult Without Abnormal FindingsMenopauseAnemia Normochromic, NormocyticAssessment of CoughDepression with AnxietyOrganic Sleep Apnea Obstructive AdultObesityAssessment of Feeling Tired (fatigue)ObesityAssessment of Feeling Tired (fatigue)ObesityAssessment of Feeling Tired (fatigue)ObesityAssessment of Feeling Tired (fatigue)ObesityAssessment of Feeling Tired (fatigue) [place] ([facility]) Routine History & Physical Adult Without Abnormal Findings Menopause Anemia Normochromic, Normocytic Assessment of Cough Depression with Anxiety Organic Sleep Apnea Obstructive Adult Routine History & Physical Adult Without Abnormal Findings Menopause Anemia Normochromic, Normocytic Assessment of Cough Depression with Anxiety Organic Sleep Apnea Obstructive Adult Routine History & Physical Adult Without Abnormal Findings Menopause Anemia Normochromic, Normocytic Assessment of Cough Depression with Anxiety Organic Sleep Apnea Obstructive Adult Routine History & Physical Adult Without Abnormal Findings Menopause Anemia Normochromic, Normocytic Assessment of Cough Depression with Anxiety Organic Sleep Apnea Obstructive Adult Routine History & Physical Adult Without Abnormal Findings Menopause Anemia Normochromic, Normocytic Assessment of Cough Depression with Anxiety Organic Sleep Apnea Obstructive Adult Obesity Assessment of Feeling Tired (fatigue) Obesity Assessment of Feeling Tired (fatigue) Obesity Assessment of Feeling Tired (fatigue) Obesity Assessment of Feeling Tired (fatigue) Obesity Assessment of Feeling Tired (fatigue) [address] [id number] 03/31/2019 12:00:00 AM EST eCW1 ([facility]) [address] [id number] 02/24/2019 12:00:00 AM EST eCW1 ([facility]) Medications Medication Brand Name Start Date Product Form Dose Route Admi nistrative Instructions Pharmacy Instructions Status Indications Reaction Description Data Source(s) Phentermine Hydrochloride 37.5 MG Oral T ablet Phentermine HCl 37.5 MG Oral Tablet Phentermine HCl 37.5 MG Oral Tablet 04/17/2020 12:00:00 AM EST active phentermine hydrochloride 37.5 M G Oral Tablet [facility]) Betamethasone 0.5 MG/ML Topical Cream Be tamethasone Dipropionate 0.05% External Cream Betamethasone Dipropionate 0.05% External Cream 2020 12:00:00 AM EST active betamethasone 0.5 MG/ML Topical Cream [facility]) benzonatate 100 MG Oral Capsule [Tessalo n Perles] Tessalon Perles 100 MG Oral Capsule Tessalon Perles 100 MG Oral Capsule 03/21/2020 12:00:00 AM EST 1 active benzonatate 100 MG Oral Caps ule [Tessalon Perles] [facility]) Sumatriptan 100 MG Oral Tablet [Imitrex] Imitrex 100 M G Oral Tablet Imitrex 100 MG Oral Tablet 03/21/2020 12:00:00 AM EST act daniel sumatriptan 100 MG Oral Tablet [Imitrex] [facility]) 200 ACTUAT Albuterol 0.09 MG/ACTUAT [place] red Dose Inhaler [ProAir] ProAir HFA 108 (90 Base) MCG/ACT Inhalation Aerosol Solution ProAir HFA 108 (90 Base) MCG/ACT Inhalation Aerosol Solution 03/21/2020 12:00:00 AM EST 18 active [id number] 200 ACTUAT albuterol 0.09 MG/ACTUAT Metered Dose Inhaler [ProAir] [facility]) 100 mg 03/21/2020 12:00:00 AM EST tablet 9 TAKE ONE TABLET BY MOUTH AT ONSET OF HEADACHE, REPEAT ONCE IN 2 HOURS TAKE ONE TABLET BY MOUTH AT ONSET OF HEADACHE, REPEAT ONCE IN 2 HOURS SOLD: 03/21/2020 [facility] 24 HR venlafaxine 75 MG Extended Release Oral Capsule [Effexor] Effexor XR 75 MG Oral Capsule Extended Release 24 Hour Effexor XR 75 MG Oral Capsule Extended Release 24 Hour 03/21/2020 12:00:00 AM EST 1 ac tive 24 HR venlafaxine 75 MG Extended Release Oral Capsule [Effexor] [place] ([facility]) benzonatate 100 MG Oral Capsule BENZONATATE 03/21/2020 12:00:00 AM EST capsule 20 TAKE ONE CAPSULE BY MOUTH THREE TIMES A DAY NEEDED TAKE ONE CAPSULE BY MOUTH THREE TIMES A DAY NEEDED SOLD: 03/21/2020 [facility] buspirone hydrochloride 15 MG Oral Tablet busPIRone HC l 15 MG Oral Tablet busPIRone HCl 15 MG Oral Tablet 03/21/2020 12:00:00 AM EST active buspirone hydrochloride 15 MG Oral Tablet [place] ([facility]) buspirone hydrochloride 15 MG Oral Tablet BUSPIRONE HCL 03/21/2020 12:00:00 AM EST tablet 60 TAKE ONE TABLET BY MOUTH TWI CE A DAY TAKE ONE TABLET BY MOUTH TWICE A DAY SOLD: 03/21/2020 [facility] Phentermine Hydrochloride 37.5 MG Oral T ablet Phentermine HCl 37.5 MG Oral Tablet Phentermine HCl 37.5 MG Oral Tablet 03/21/2020 12:00:00 AM EST aborted phentermine hydrochloride 37.5 M G Oral Tablet [place] ([facility]) 37.5 mg 03/21/2020 12:00:00 AM EST tablet 30 TAKE ONE TABLET BY MOUTH EVERY DAY UPON WAKING, MAXIMUM DAILY DOSE = 1 TAKE ONE TABLET BY MOUTH EVERY DAY UPON WAKING, MAXIMUM DAILY DOSE = 1 SOLD: 03/21/2020 [facility] 90 mcg/actuation 03/21/2020 12:00:00 AM EST HFA aerosol inha ler 8 INHALE TWO PUFFS BY MOUTH FOUR TIMES A DAY NEEDED INHALE TWO PUFFS BY MOUTH FOUR TIMES A DAY NEEDED SOLD: 03/21/2020 [facility] 75 mg 03/21/2020 12:00:00 AM EST capsule,extended releas e 24hr 56 TAKE ONE CAPSULE BY MOUTH EVERY DAY TAKE ONE CAPSULE BY MOUTH EVERY DAY SOLD: 03/21/2020 [facility] Phentermine Hydrochloride 37.5 MG Oral T ablet Phentermine HCl 37.5 MG Oral Tablet Phentermine HCl 37.5 MG Oral Tablet 03/20/2020 12:00:00 AM EST aborted phentermine hydrochloride 37.5 M G Oral Tablet [place] ([facility]) benzonatate 100 MG Oral Capsule [Tessalo n Perles] Tessalon Perles 100 MG Oral Capsule Tessalon Perles 100 MG Oral Capsule 03/20/2020 12:00:00 AM EST 1 aborted benzonatate 100 MG Oral Caps ule [Tessalon Perles] [facility]) buspirone hydrochloride 15 MG Oral Tablet busPIRone HC l 15 MG Oral Tablet busPIRone HCl 15 MG Oral Tablet 03/20/2020 12:00:00 AM EST aborted buspirone hydrochloride 15 MG Oral Tablet [facility]) 24 HR venlafaxine 75 MG Extended Release Oral Capsule [Effexor] Effexor XR 75 MG Oral Capsule Extended Release 24 Hour Effexor XR 75 MG Oral Capsule Extended Release 24 Hour 03/20/2020 12:00:00 AM EST 1 ab orted 24 HR venlafaxine 75 MG Extended Release Oral Capsule [Effexor] [facility]) Sumatriptan 100 MG Oral Tablet [Imitrex] Imitrex 100 M G Oral Tablet Imitrex 100 MG Oral Tablet 03/20/2020 12:00:00 AM EST abo rted sumatriptan 100 MG Oral Tablet [Imitrex] [facility]) 200 ACTUAT Albuterol 0.09 MG/ACTUAT Mete red Dose Inhaler [ProAir] ProAir HFA 108 (90 Base) MCG/ACT Inhalation Aerosol Solution ProAir HFA 108 (90 Base) MCG/ACT Inhalation Aerosol Solution 03/20/2020 12:00:00 AM EST 18 aborted [id number] 200 ACTUAT albuterol 0.09 MG/ACTUAT Metered Dose Inhaler [ProAir] [facility]) buspirone hydrochloride 15 MG Oral Tablet BUSPIRONE HCL 06/22/2019 12:00:00 AM EDT tablet 60 TAKE ONE TABLET BY MOUTH TWI CE A DAY TAKE ONE TABLET BY MOUTH TWICE A DAY SOLD: 02/17/2020 [facility] buspirone hydrochloride 15 MG Oral Tablet BUSPIRONE HCL 06/22/2019 12:00:00 AM EDT tablet 60 TAKE ONE TABLET BY MOUTH TWI CE A DAY TAKE ONE TABLET BY MOUTH TWICE A DAY SOLD: 06/24/2019 [facility] 100 mg 06/22/2019 12:00:00 AM EDT tablet 9 TAKE 1 TABLET BY MOUTH IMMEDIATELY WITH HEADACHE - REPEAT IN 2 HOURS ONCE - MAXIMUM DAILY DOSE = 2 TABLETS TAKE 1 TABLET BY MOUTH IMMEDIATELY WITH HEADACHE - REPEAT IN 2 HOURS ONCE - MAXIMUM DAILY DOSE = 2 TABLETS SOLD: 06/24/2019 [facility] 90 mcg/actuation 06/22/2019 12:00:00 AM EDT HFA aerosol inha ler 8 INHALE 2 PUFFS BY MOUTH FOUR TIMES A DAY NEEDED INHALE 2 PUFFS BY MOUTH FOUR TIMES A DAY NEEDED SOLD: 06/24/2019 [facility] Iron 325 (65 Fe) MG Oral Tablet Iron 325 (65 Fe) MG Oral Tab let 06/21/2019 12:00:00 AM EDT aborted Iron [facility]) Ascorbic Acid 500 MG Oral Tablet Vitamin C 500 MG Oral Tablet Vitamin C 500 MG Oral Tablet 06/21/2019 12:00:00 AM EDT aborte d ascorbic acid 500 MG Oral Tablet [facility]) buspirone hydrochloride 15 MG Oral Tablet busPIRone HC l 15 MG Oral Tablet busPIRone HCl 15 MG Oral Tablet 06/21/2019 12:00:00 AM EDT aborted buspirone hydrochloride 15 MG Oral Tablet [place] ([facility]) 200 ACTUAT Albuterol 0.09 MG/ACTUAT Mete red Dose Inhaler [ProAir] ProAir HFA 108 (90 Base) MCG/ACT Inhalation Aerosol Solution ProAir HFA 108 (90 Base) MCG/ACT Inhalation Aerosol Solution 06/21/2019 12:00:00 AM EDT 18 aborted [id number] 200 ACTUAT albuterol 0.09 MG/ACTUAT Metered Dose Inhaler [ProAir] [facility]) Ascorbic Acid 500 MG Oral Tablet Vitamin C 500 MG Oral Tablet Vitamin C 500 MG Oral Tablet 06/21/2019 12:00:00 AM EDT active ascorbic acid 500 MG Oral Tablet [facility]) Iron 325 (65 Fe) MG Oral Tablet Iron 325 (65 Fe) MG Oral Tab let 06/21/2019 12:00:00 AM EDT active Iron [place] ([facility]) 200 ACTUAT Albuterol 0.09 MG/ACTUAT Mete red Dose Inhaler [ProAir] ProAir HFA 108 (90 Base) MCG/ACT Inhalation Aerosol Solution ProAir HFA 108 (90 Base) MCG/ACT Inhalation Aerosol Solution 06/21/2019 12:00:00 AM EDT 18 aborted [id number] 200 ACTUAT albuterol 0.09 MG/ACTUAT Metered Dose Inhaler [ProAir] [place] ([facility]) Sumatriptan 100 MG Oral Tablet [Imitrex] Imitrex 100 M G Oral Tablet Imitrex 100 MG Oral Tablet 06/21/2019 12:00:00 AM EDT abo rted sumatriptan 100 MG Oral Tablet [Imitrex] [place] ([facility]) 75 mg 05/27/2019 12:00:00 AM EDT capsule,extended releas e 24hr 56 TAKE ONE CAPSULE BY MOUTH EVERY DAY TAKE ONE CAPSULE BY MOUTH EVERY DAY SOLD: 09/20/2019 [facility] 75 mg 05/27/2019 12:00:00 AM EDT capsule,extended releas e 24hr 56 TAKE ONE CAPSULE BY MOUTH EVERY DAY TAKE ONE CAPSULE BY MOUTH EVERY DAY SOLD: 12/26/2019 [facility] 75 mg 05/27/2019 12:00:00 AM EDT capsule,extended releas e 24hr 56 TAKE ONE CAPSULE BY MOUTH EVERY DAY TAKE ONE CAPSULE BY MOUTH EVERY DAY SOLD: 05/27/2019 [facility] 20 mg 05/12/2019 12:00:00 AM EST capsule,delayed release (DR/EC) 45 TAKE ONE CAPSULE BY MOUTH EVERY OTHER DAY TAKE ONE CAPSULE BY MOUTH EVERY OTHER DAY SOLD: 05/27/2019 [facility] 24 HR venlafaxine 75 MG Extended Release Oral Capsule [Effexor] Effexor XR 75 MG Oral Capsule Extended Release 24 Hour Effexor XR 75 MG Oral Capsule Extended Release 24 Hour 05/11/2019 12:00:00 AM EST 1 ab orted 24 HR venlafaxine 75 MG Extended Release Oral Capsule [Effexor] [place] ([facility]) Omeprazole 20 MG Delayed Release Oral Ca psule Omeprazole 20 MG Oral Capsule Delayed Release Omeprazole 20 MG Oral Capsule Delayed Release 03/04/20 20 12:00:00 AM EST aborted omeprazole 20 MG Delayed Release Oral Capsule [place] ([facility]) benzonatate 100 MG Oral Capsule [Tessalo n Perles] Tessalon Perles 100 MG Oral Capsule Tessalon Perles 100 MG Oral Capsule 05/11/2019 12:00:00 AM EST 1 aborted benzonatate 100 MG Oral Caps ule [Tessalon Perles] [place] ([facility]) Ascorbic Acid 500 MG Oral Tablet Vitamin C 500 MG Oral Tablet Vitamin C 500 MG Oral Tablet 04/08/2019 12:00:00 AM EST aborte d ascorbic acid 500 MG Oral Tablet [place] ([facility]) Iron 325 (65 Fe) MG Oral Tablet Iron 325 (65 Fe) MG Oral Tab let 04/08/2019 12:00:00 AM EST aborted Iron [place] ([facility]) 24 HR venlafaxine 75 MG Extended Release Oral Capsule [Effexor] Effexor XR 75 MG Oral Capsule Extended Release 24 Hour Effexor XR 75 MG Oral Capsule Extended Release 24 Hour 04/07/2019 12:00:00 AM EST 1 ab orted 24 HR venlafaxine 75 MG Extended Release Oral Capsule [Effexor] [place] ([facility]) 75 mg 04/07/2019 12:00:00 AM EST capsule,extended releas e 24hr 30 TAKE ONE CAPSULE BY MOUTH EVERY DAY WITH 37.5MG TAKE ONE CAPSULE BY MOUTH EVERY DAY WITH 37.5MG SOLD: 04/08/2019 [facility] buspirone hydrochloride 15 MG Oral Tablet BUSPIRONE HCL 04/06/2019 12:00:00 AM EST tablet 60 TAKE ONE TABLET BY MOUTH TWI CE A DAY TAKE ONE TABLET BY MOUTH TWICE A DAY SOLD: 04/06/2019 [facility] 37.5 mg 04/06/2019 12:00:00 AM EST capsule,extended releas e 24hr 30 TAKE ONE CAPSULE BY MOUTH EVERY DAY TAKE ONE CAPSULE BY MOUTH EVERY DAY SOLD: 04/06/2019 [facility] 24 HR venlafaxine 37.5 MG Extended Relea se Oral Capsule [Effexor] Effexor XR 37.5 MG Oral Capsule Extended Release 24 Hour Effexor XR 37.5 MG Oral Capsule Extended Release 24 Hour 04/04/2019 12:00:00 AM EST 1 aborted 24 HR venlafaxine 37.5 MG Extended Release Oral Capsule [Effexor] [facility]) buspirone hydrochloride 15 MG Oral Tablet busPIRone HC l 15 MG Oral Tablet busPIRone HCl 15 MG Oral Tablet 04/04/2019 12:00:00 AM EST aborted buspirone hydrochloride 15 MG Oral Tablet [facility]) benzonatate 100 MG Oral Capsule BENZONATATE 04/04/2019 12:00:00 AM EST capsule 20 TAKE ONE CAPSULE BY MOUTH THREE TIMES A DAY NEEDED TAKE ONE CAPSULE BY MOUTH THREE TIMES A DAY NEEDED SOLD: 04/06/2019 [facility] Omeprazole 20 MG Delayed Release Oral Ca psule Omeprazole 20 MG Oral Capsule Delayed Release Omeprazole 20 MG Oral Capsule Delayed Release 04/04/19 20 12:00:00 AM EST 1 aborted omeprazole 20 MG Delayed Release Oral Capsule [facility]) 200 ACTUAT Albuterol 0.09 MG/ACTUAT Mete red Dose Inhaler [Ventolin] Ventolin HFA 108 (90 Base) MCG/ACT Inhalation Aerosol Solution Ventolin HFA 108 (90 Base) MCG/ACT Inhalation Aerosol Solution 04/04/2019 12:00:00 AM EST 18 aborted [id number] 200 ACTUAT albuterol 0.09 MG/ACTUAT Metered Dose Inhaler [Ventolin] [place] ([facility]) benzonatate 100 MG Oral Capsule [Tessalo n Perles] Tessalon Perles 100 MG Oral Capsule Tessalon Perles 100 MG Oral Capsule 04/04/2019 12:00:00 AM EST 1 aborted benzonatate 100 MG Oral Caps ule [Tessalon Perles] [facility]) Phenazopyridine hydrochloride 200 MG Oral Tablet [Pyridium] Pyridium 01/17/2019 12:00:00 AM EST ORAL completed [facility] ([facility], ) 75 mg 01/05/2019 12:00:00 AM EDT capsule,extended releas e 24hr 30 TAKE ONE CAPSULE BY MOUTH EVERY DAY TAKE ONE CAPSULE BY MOUTH EVERY DAY SOLD: 02/21/2019 [facility] 24 HR venlafaxine 75 MG Extended Release Oral Capsule [Effexor] Effexor XR 75 MG Oral Capsule Extended Release 24 Hour Effexor XR 75 MG Oral Capsule Extended Release 24 Hour 01/04/2019 12:00:00 AM EDT 1 ab orted 24 HR venlafaxine 75 MG Extended Release Oral Capsule [Effexor] [place] ([facility]) buspirone hydrochloride 15 MG Oral Tablet busPIRone HC l 15 MG Oral Tablet busPIRone HCl 15 MG Oral Tablet 01/04/2019 12:00:00 AM EDT aborted buspirone hydrochloride 15 MG Oral Tablet [place] ([facility]) Omeprazole 20 MG Delayed Release Oral Ca psule Omeprazole 20 MG Oral Capsule Delayed Release Omeprazole 20 MG Oral Capsule Delayed Release 01/05/20 12:00:00 AM EDT 1 aborted omeprazole 20 MG Delayed Release Oral Capsule [place] ([facility]) 200 ACTUAT Albuterol 0.09 MG/ACTUAT Mete red Dose Inhaler [Ventolin] Ventolin HFA 108 (90 Base) MCG/ACT Inhalation Aerosol Solution Ventolin HFA 108 (90 Base) MCG/ACT Inhalation Aerosol Solution 01/04/2019 12:00:00 AM EDT 18 aborted [id number] 200 ACTUAT albuterol 0.09 MG/ACTUAT Metered Dose Inhaler [Ventolin] [place] ([facility]) Insurance Providers Payer name Policy type / Coverage type Policy ID Covered libertarian ID Covered libertarian's relationship to laughlin Policy [place] Plan Information EMEDNY [id number] SP [id number] [facility] HU[facility] [id number] [facility] [id number] Medicaid of [place] Other 0 Self 0 [facility]UM[facility] [id number] [facility] [id number] [facility] COMMUNITY [facility]AN [facility] [id number] SP [id number] [place] Other 0 Self 0 [place] Other 0 Self 0 [place] Other 0 Self 0 MEDICAID [id number] SP [id number] [facility] [phone] [facility] [id number] Medicaid of [place] Other 0 Self 0 [facility] COMMUNITY PLAN [facility] [id number] SP [id number] [facility] - O/P [id number] [facility] AMERICHOICE XIX -O [id number] 18 [id number] HUMANA [place] O [id number] S [id number] [facility] [id number] S [id number] [employer] COMMUNITY PLAN MCDO [id number] SP [id number] [facility] Individual Policy NYCDP Family Dependent Merna Devi NYCDP [facility] Health Maintenance Organization (HMO) Self [facility] Community Plan Commercial Self [facility] Health Maintenance Organization (HMO) [id number] Self [id number] [facility] Individual Policy NYCDP S elf NYCDFHP [employer] COMMUNITY PLAN [id number] SP [id number] [facility] Individual Policy NYCDP S elf NYCDP MEDICAID [id number] 18 [id number] MEDICAID -O/P EMERGENCY ROOM [id number] MEDICAID -PHYSICIAN [id number] MEDICAID [id number] [facility] Individual Policy NYCDP S elf NYCDP [facility] Individual Policy NYCDP S elf NYCDP [facility] Individual Policy NYCDP S elf NYCDP [facility] Health Maintenance Organization (HMO) [id number] Self [id number] [place] Med[place] [id number] Self [id number] [facility] Individual Policy NYCDFH S elf NYCDP [facility] S elf NYCDP [facility] Individual Policy NYCDFHP S elf NYCDP [facility] [id number] 18 [id number] [facility] Individual Policy NYCDFHP S elf NYCDFHP [facility] Individual Policy NYCDFHP S elf NYCDFHP U[facility] Individual Policy NYCDFHP S elf NYCDFHP UB [facility] Individual Policy NYCDFHP S elf NYCDFHP [facility] COMMUNITY PLAN XIX [id number] 18 [id number] [facility] Individual Policy NYCDFHP S elf NYCDFHP [facility] COMMUNITY PLAN CO [id number] 18 [id number] [facility] Individual Policy NYCDFHP S [facility] NYCDFHP [facility] Individual Policy NYCDFHP S [facility] NYCDFHP [facility] Individual Policy NYCDFHP S [facility] NYCDFHP [facility] Individual Policy NYCDFHP S [facility] NYCDFHP [facility] Individual Policy NYCDFHP S [facility] NYCDFHP [facility] Individual Policy NYCDFHP S [facility] NYCDFHP [facility] Individual Policy NYCDFHP S [facility] NYCDFHP [facility] Individual Policy NYCDFHP S [facility] NYCDFHP [facility] Individual Policy NYCDFHP S [facility] NYCDFHP [facility] Individual Policy NYCDFHP S [facility] NYCDP [facility] Individual Policy NYCDFHP S [facility] NYCDP [facility] Individual Policy NYCDFHP S [facility] NYCDFHP Problems, Conditions, and Diagnoses Code Display Name Description Problem Type Effective Dates Data Source(s) [id number] Obstructive sleep apnea syndrome Obstructive sle ep apnea syndrome Problem 06/01/2019 12:00:00 AM [facility]AGHU [facility] ([facility] Z833 Family history of diabetes mellitus Family histo ry of diabetes mellitus Diagnosis 04/04/2019 04:15:00 PM [facility] Z8342 Family history of familial hypercholeste rolemia Family history of familial hypercholesterolemia Diagnosis 04/04/2019 04:15:00 PM [facility] E669 Obesity, unspecified Obesity, unspecified Diagnosis 04/04/2019 04:15:00 PM [facility] F1010 Alcohol abuse, uncomplicated Alcohol abuse, uncomplica sara Diagnosis 04/04/2019 04:15:00 PM [facility] D649 Anemia, unspecified Anemia, unspecified Diagnosis 0 04/04/2019 04:15:00 PM [facility] R5383 Other fatigue Other fatigue Diagnosis 04/04/2019 04:15:00 PM [facility] Surgeries/Procedures Procedure Description Date Indications Data Source(s) SHAVE SKIN LESION 0.6-1.0cm (face,nose) SHAVE SKIN LESION 0. 6-1.0cm (face,nose) 07/11[facility]2019 [facility] CHEMICAL CAUTERY, TISSUE CHEMICAL CAUTERY, TISSUE 07/11/2019 12:00: [facility] SHAVE SKIN LESION 0.6-1.0cm (face,nose) SHAVE SKIN LESION 0. 6-1.0cm (face,nose) 07/11/2019 12:00:00 AM [facility] ([facility]) No history of hyperlipidemia No history of hyperlipidemia 12:00:00 AM [facility]) No history of essential hypertension No history of essential hypertension 04/04/2019 12:00:00 AM [facility] ([facility]) No history of coronary artery disease No history of coronary artery disease 04/04/2019 12:00:00 AM [facility] ([facility]) PARTIAL HYST ~AP ~G7 1 TAB, 2 SAB ~4 ~BTL ~ALLERGY:NUBAIN (ITCHY), KEFLEX MOUTH BLISTERS PARTIAL HYST ~AP ~G7 1 TAB, 2 SAB ~4 ~BTL ~ALLERGY:NUBAIN (ITCHY), KEFLEX MOUTH BLISTERS 04/04/2019 12:00:00 AM [facility] ([facility]) O2 SATURATION> 88% /SHON>55 O2 SATURATION> 88% /SHON>55 2019 12:00:00 AM [facility] ([facility]) Results ID Date Data Source [id number] 07/11/2019 09:27:00 AM [facility] ([facility]) Name Value Range Interpretation Code Description Data Milady rce(s) Supporting Document(s) Pathology report site of origin Narrative MATER . [place] ([facility]) Note: Material submitted: .neck - BACK OF NECK/HAIRLINE Pathology report final diagnosis Narrative FDIAG . [place] ([facility]) Note: Diagnosis: INTRADERMAL NEVUS, BACK OF NECK/HAIRLINE.CIF 07/13/2019 1023 Local Pathologist name MARLON BROWNING ([facility]) Note: Electronically signed: .Paolo Puente MD, Pathologist Diagnosis ICD code [id number] . [place] ([facility]) Note: Pathologist provided ICD-10:D22.4 Payment procedure CPT Liu BROWNING ([facility]) Note: CPT .443262 Pathology report gross observation Narrative [place] BROWNING ([facility]) Note: Gross description: .Specimen received in formalin labeled "lesion back of neck hairline" is a0.6 x 0.4 cm pollock to dusky kwok pollock skin shave. The specimen is bisectedand totally submitted. DE/KWI 07/12/2019 1130 Local Diagnosis ICD code [id number] . [place] ([facility]) Note: Clinician provided ICD-10:D23.9 ID Date Data Source [id number] 07/13/2019 11:05:00 AM EDT [facility] Name Value Range Interpretation Code Description Data Milady rce(s) Supporting Document(s) Pathology Report [facility] . 01Material submitted: .neck - BACK OF NECK/HAIRLINE. 01Clinician provided ICD-10:D23.9. 01Diagnosi s:INTRADERMAL NEVUS, BACK OF NECK/HAIRLINE.CIF 07/13/2019 1023 Local. 01Electronically signed: .Paolo Puente MD, Pathologist. 01Gross description: .Specimen received in formalin labeled "lesion back of neck hairline" is a0.6 x 0.4 cm pollock to dusky kwok pollock skin shave. The specimen is bisectedand totally submitted. DE/KWI 07/12/2019 1130 Local. 01Pathologist provided ICD-10:D22.4. 01CPT .[id number] ID Date Data Source [id number] 06/17/2019 07:47:00 AM EDT [place] ([facility]) Name Value Range Interpretation Code Description Data Milady rce(s) Supporting Document(s) Reported Physicians See Note Reported Physici ans [facility]) Note: Reported Physicians:Ordering: Mell Neal AAttending: Promise Watkins To: Mell Watkins ID Date Data Source [id number] 06/17/2019 07:47:00 AM EDT [place] ([facility]) Name Value Range Interpretation Code Description Data Milady rce(s) Supporting Document(s) RED BLOOD COUNT 4.54 6/uL Normal RED BLOOD COUNT KRISTOFER [facility]) WHITE BLOOD COUNT 9.5 3/uL Normal WHITE BLOOD COUNT [place] ([facility]) Hematocrit [Pure volume fraction] of Blood by Automated count 39.5 % Normal HEMATOCRIT [place] ([facility]) Hemoglobin [Mass/volume] in Mixed venous blood by Oximetry 13.1 g/d l Normal HEMOGLOBIN [facility]) MEAN CORPUSCULAR HEMOGLOBIN 28.9 pg Normal MEAN COR PUSCULAR HEMOGLOBIN [place] ([facility]) MEAN CORPUSCULAR VOLUME 87.0 fl Normal MEAN CORPUSC ULAR VOLUME [facility]) RED CELL DISTRIBUTION WIDTH 15.2 % Above high no rmal RED CELL DISTRIBUTION WIDTH [facility]) PLATELET COUNT, AUTOMATED 378 3/uL Normal PLATELET C OUNT, AUTOMATED [facility]) MEAN CORPUSCULAR HGB CONC 33.2 g/dl Normal MEAN CORPU SCULAR HGB CONC [place] ([facility]) NUCLEATED RED BLOOD CELL % 0.0 % Normal NUCLEATED RED BLOOD CELL % [place] ([facility]) ID Date Data Source [id number] 06/17/2019 07:47:00 AM EDT [place] ([facility]) Name Value Range Interpretation Code Description Data Milady rce(s) Supporting Document(s) Reported Physicians See Note Reported Physici ans [place] ([facility]) Note: Reported Physicians:Ordering: Mell Neal AAttending: Valerie WatkinscelynCopy To: Mell Watkins ID Date Data Source [id number] 06/17/2019 07:47:00 AM EDT [place] ([facility]) Name Value Range Interpretation Code Description Data Milady rce(s) Supporting Document(s) IRON (FE) 66 UG/DL Normal IRON (FE) [place] ([facility]) TOTAL IRON BINDING CAPACITY 294 UG/DL Normal TOTAL IR ON BINDING CAPACITY [facility]) PERCENT SATURATION 22.4 % Normal PERCENT SATURATIO N [facility]) ID Date Data Source [id number] 06/17/2019 07:47:00 AM EDT [place] ([facility]) Name Value Range Interpretation Code Description Data Milady rce(s) Supporting Document(s) Reported Physicians See Note Reported Physici ans [place] ([facility]) Note: Reported Physicians:Ordering: Suárez e Mell AAttending: June, JocelynCopy To: June, Mell ID Date Data Source [id number] 06/17/2019 07:47:00 AM EDT [place] ([facility]) Name Value Range Interpretation Code Description Data Milady rce(s) Supporting Document(s) RETICULOCYTE % 1.2 % Normal RETICULOCYTE % [facility] ([facility]) RETICULOCYTE # 56.3 9/L Normal RETICULOCYTE # [facility] ([facility]) RETIC HEMOGLOBIN EQUIVALENT 35.6 pg Normal RETIC HE MOGLOBIN EQUIVALENT [place] ([facility]) ID Date Data Source [id number] 06/17/2019 07:47:00 AM EDT [place] ([facility]) Name Value Range Interpretation Code Description Data Milady rce(s) Supporting Document(s) Reported Physicians See Note Reported Physici ans [place] ([facility]) Note: Reported Physicians:Ordering: Suárez e, Mell AAttending: June, JocelynCopy To: June, Mell ID Date Data Source [id number] 06/17/2019 07:47:00 AM EDT [place] ([facility]) Name Value Range Interpretation Code Description Data Milady rce(s) Supporting Document(s) Ferritin [Interpretation] in Blood 76 NG/ML Normal F ERRITIN [place] ([facility]) ID Date Data Source [id number] 04/04/2019 04:30:00 PM EST [place] ([facility]) Name Value Range Interpretation Code Description Data Milady rce(s) Supporting Document(s) Reported Physicians See Note Reported Physici ans [place] ([facility]) Note: Reported Physicians:Ordering: Suárez e, Mell AAttending: JUNE, JOCELYNConsulting: JUNE, JOCELYNCopy To: June Mell ID Date Data Source [id number] 04/04/2019 04:30:00 PM EST [place] ([facility]) Name Value Range Interpretation Code Description Data Milady rce(s) Supporting Document(s) FOLIC ACID 17.5 NG/ML FOLIC ACID [place] ([facility]) Note: Responsible Observer: (ALIDA) ID Date Data Source [id number] 04/04/2019 04:30:00 PM EST [place] ([facility]) Name Value Range Interpretation Code Description Data Milady rce(s) Supporting Document(s) Reported Physicians See Note Reported Physici ans [place] ([facility]) Note: Reported Physicians:Ordering: Suárez e, Mell AAttending: MELL WATKINSConsulting: Promise WATKINS To: Mell Watkins ID Date Data Source [id number] 04/04/2019 04:30:00 PM EST [place] ([facility]) Name Value Range Interpretation Code Description Data Milady rce(s) Supporting Document(s) Iron [Mass/volume] in Urine collected for unspecified duration 2 8 UG/DL Below low normal IRON [place] ([facility]) Note: Responsible Observer: (NH) TIBC 343 ug/dL TIBC [place] ([facility]) Note: Responsible Observer: (NH) IRON SAT 8 % IRON SAT [place] ([facility]) Note: Responsible Observer: (NH) UIBC 315 UG/DL UIBC [place] ([facility]) Note: Responsible Observer: (NH) ID Date Data Source [id number] 04/04/2019 04:30:00 PM EST [place] ([facility]) Name Value Range Interpretation Code Description Data Milady rce(s) Supporting Document(s) Reported Physicians See Note Reported Physici ans [place] ([facility]) Note: Reported Physicians:Ordering: Mell Neal AAttending: MELL WATKINSConsulting: Promise WATKINS To: Mell Watkins ID Date Data Source [id number] 04/04/2019 04:30:00 PM EST [place] ([facility]) Name Value Range Interpretation Code Description Data Milady rce(s) Supporting Document(s) Cholesterol [Moles/volume] in Pericardial fluid 180 MG/DL CHOLESTEROL [place] ([facility]) Note: Responsible Observer: (NH) HDL 69 MG/DL HDL [place] ([facility]) Note: Responsible Observer: (NH) CVE PANEL See Note CVE PANEL [place] ([facility]) Note: LIPID PANELResponsible Observe r: (NH) LDL/HDL 1.58 LDL/HDL [place] ([facility]) Note: CVE RISK CHOL/HD L LDL/HDLMEN: 1/2 AVERAGE 3.43 1.00 AVERAGE 4.97 3.55 2X AVERAGE 9.55 6.25 3X AVERAGE 23.99 7.99WOMEN: 1/2 AVERAGE 3.27 1.47 AVERAGE 4.44 3.22 2X AVERAGE 7.05 5.03 3X AVERAGE 11.04 6.14Responsible Observer: (NH) Cholesterol in LDL [Mass/volume] in Serum or Plasma by Direct as say 109 mg/dL LDL [place] ([facility]) Note: Responsible Observer: (NH) RISK FACTOR 2.6 Below low normal RISK FACTOR [facility] ([facility]) Note: Responsible Observer: (NH) TRIGLYCERIDES 142 MG/DL TRIGLYCERIDES [place] ([facility]) Note: Responsible Observer: (NH) ID Date Data Source [id number] 04/04/2019 04:30:00 PM EST [place] ([facility]) Name Value Range Interpretation Code Description Data Milady rce(s) Supporting Document(s) Reported Physicians See Note Reported Physici ans [place] ([facility]) Note: Reported Physicians:Ordering: Suárez e, Mell AAttending: JUNE, JOCELYNConsulting: JUNE, JOCELYNCopy To: June, Mell ID Date Data Source [id number] 04/04/2019 04:30:00 PM EST [place] ([facility]) Name Value Range Interpretation Code Description Data Milady rce(s) Supporting Document(s) GGT 20 U/L GGT [place] ([facility]) Note: Responsible Observer: (DW) ID Date Data Source [id number] 04/04/2019 04:30:00 PM EST [place] ([facility]) Name Value Range Interpretation Code Description Data Milady rce(s) Supporting Document(s) Reported Physicians See Note Reported Physici ans [place] ([facility]) Note: Reported Physicians:Ordering: Suárez e, Mell AAttending: JUNE, JOCELYNConsulting: JNUE, JOCELYNCopy To: June, Mell ID Date Data Source [id number] 04/04/2019 04:30:00 PM EST [place] ([facility]) Name Value Range Interpretation Code Description Data Milady rce(s) Supporting Document(s) CBC NO DIFF See Note CBC NO DIFF [place] ([facility]) Note: COMPLETE BLOOD COUNTResponsibl e Observer: (NH) Hematocrit [Pure volume fraction] of Blood by Automated count 41.5 % HEMATOCRIT [place] ([facility]) Note: Responsible Observer: (NH) MCH 26.6 pg Below low normal MCH [place] ([facility]) Note: Responsible Observer: (NH) Hemoglobin [Mass/volume] in Mixed venous blood by Oximetry 13.1 g/d L HEMOGLOBIN [place] ([facility]) Note: Responsible Observer: (NH) MCHC 31.6 g/dL MCHC [place] ([facility]) Note: Responsible Observer: (NH) MCV 84.3 fL MCV [place] ([facility]) Note: Responsible Observer: (NH) MPV 9.2 fL MPV [place] ([facility]) Note: Responsible Observer: (NH) Platelets [#/area] in Blood by Microscopy high power field 314 10\\^ 3/uL PLATELETS [place] ([facility]) Note: Responsible Observer: (NH) RBC 4.92 10\\^6/uL RBC [place] ([facility]) Note: Responsible Observer: (NH) WBC 8.6 10\\^3/uL WBC [place] ([facility]) Note: Responsible Observer: (NH) RDW 14.8 % Above high normal RDW [place] ([facility]) Note: Responsible Observer: (NH) ID Date Data Source [id number] 04/04/2019 04:30:00 PM EST [place] ([facility]) Name Value Range Interpretation Code Description Data Milady rce(s) Supporting Document(s) Reported Physicians See Note Reported Physici ans [place] ([facility]) Note: Reported Physicians:Ordering: Mell Neal AAttending: MELL WATKINSConsulting: Promise WATKINS To: Mell Watkins ID Date Data Source [id number] 04/04/2019 04:30:00 PM EST [place] ([facility]) Name Value Range Interpretation Code Description Data Milady rce(s) Supporting Document(s) VITAMIN B12 431 PG/ML VITAMIN B12 [place] ([facility]) Note: Responsible Observer: (ALIDA) ID Date Data Source [id number] 04/04/2019 04:30:00 PM EST [place] ([facility]) Name Value Range Interpretation Code Description Data Milady rce(s) Supporting Document(s) Reported Physicians See Note Reported Physic ans [place] ([facility]) Note: Reported Physicians:Ordering: Suárez e, Mell AAttending: JUNE, JOCELYNConsulting: JUNE, JOCELYNCopy To: June, Mell ID Date Data Source [id number] 04/04/2019 04:30:00 PM EST [place] ([facility]) Name Value Range Interpretation Code Description Data Milady rce(s) Supporting Document(s) Ferritin [Interpretation] in Blood 13.4 ng/mL F ERRITIN [place] ([facility]) Note: Responsible Observer: (ALIDA) ID Date Data Source [id number] 04/04/2019 04:30:00 PM EST [place] ([facility]) Name Value Range Interpretation Code Description Data Milady rce(s) Supporting Document(s) Reported Physicians See Note Reported Physic ans [place] ([facility]) Note: Reported Physicians:Ordering: Suárez e, Mell AAttending: JUNE, JOCELYNConsulting: JUNE, JOCELYNCopy To: June, Mell ID Date Data Source [id number] 04/04/2019 04:30:00 PM EST [place] ([facility]) Name Value Range Interpretation Code Description Data Milady rce(s) Supporting Document(s) TSH 0.76 uIU/mL TSH [place] ([facility]) Note: Responsible Observer: (DW) ID Date Data Source [id number] 04/04/2019 04:30:00 PM EST [place] ([facility]) Name Value Range Interpretation Code Description Data Milady rce(s) Supporting Document(s) Reported Physicians See Note Reported [facility] ([facility]) Note: Reported Physicians:Ordering: Suárez e, Mell AAttending: JUNE, JOCELYNConsulting: MELL WATKINSCopglen To: Mell Watkins ID Date Data Source [id number] 04/04/2019 04:30:00 PM EST [place] ([facility]) Name Value Range Interpretation Code Description Data Milady rce(s) Supporting Document(s) RETIC COUNT 1.3 % RETIC COUNT [place] ([facility]) Note: Responsible Observer: (NH) ID Date Data Source [id number] 04/04/2019 08:13:00 PM [facility] Name Value Range Interpretation Code Description Data Milady rce(s) Supporting Document(s) Thyrotropin [Units/volume] in Serum or Plasma by Detec tion limit <= 0.05 mIU/L 0.76 uIU/mL 0.47 - 5.01 [facility] ID Date Data Source [id number] 04/04/2019 08:13:[address] [facility] Value Range Interpretation Code Description Data Milady rce(s) Supporting Document(s) Folate [Mass/volume] in Serum or Plasma 17.5 NG/ML 4.4 - 31.0 [facility] ID Date Data Source [id number] 04/04/2019 08:12:00 PM [facility] Name Value Range Interpretation Code Description Data Milady rce(s) Supporting Document(s) Cobalamin (Vitamin B12) [Mass/volume] in Serum or Plasma 431 PG/ML 232 - 1245 [facility] ID Date Data Source [id number] 04/04/2019 08:12:00 PM [facility] Name Value Range Interpretation Code Description Data Milady rce(s) Supporting Document(s) Ferritin [Mass/volume] in Serum or Plasma 13.4 ng/mL 3.0 - 105 [facility] ID Date Data Source [id number] 04/04/2019 08:06:[address] [facility] Value Range Interpretation Code Description Data Milady rce(s) Supporting Document(s) CVE PANEL [facility] LIPID PANEL Cholesterol [Mass/volume] in Serum or Plasma 180 MG/DL 131 - 200 [facility] Deprecated Triglyceride [Mass/volume] in Serum or Plasma 142 MG/DL 3 5 - 160 [facility] HDL 69 MG/DL 29 - 86 [facility] Ch[facility] in LDL/Cholesterol in HDL [Mass Ratio] in Serum or Plasma 109 mg/dL 65 - 175 [facility] Cholesterol.total/Cholesterol in HDL [Mass Ratio] in Serum o r Plasma 2.6 3.2 - 4.4 L [facility] LDL/HDL 1.58 1.47 - 3.22 [facility] ital CVE RISK CHOL/HDL LDL/HDLMEN: 1/2 AVERAGE 3.43 1.00 AVERAGE 4.97 3.55 2X AVERAGE 9.55 6.25 3X AVERAGE 23.99 7.99WOMEN: 1/2 AVERAGE 3.27 1.47 AVERAGE 4.44 3.22 2X AVERAGE 7.05 5.03 3X AVERAGE 11.04 6.14 ID Date Data Source [id number] 04/04/2019 08:06:00 PM [facility] Name Value Range Interpretation Code Description Data Milady rce(s) Supporting Document(s) Iron [Mass/volume] in Serum or Plasma 28 UG/DL 42 - 135 L [facility] Iron binding capacity.unsaturated [Mass/volume] in Serum or Plasma 315 UG/DL 112 - 347 [facility] Iron binding capacity [Mass/volume] in Serum or Plasma 343 ug/dL 250 - 450 [facility] Iron saturation [Mass Fraction] in Serum or Plasma 8 % [facility] ID Date Data Source [id number] 04/04/2019 07:59:[address] [facility] Value Range Interpretation Code Description Data Milady rce(s) Supporting Document(s) Gamma glutamyl transferase [Enzymatic activity/volume] in Serum or Plasma 20 U/L 8 - 78 [facility] ID Date Data Source [id number] 04/04/2019 04:41:00 PM [facility] Name Value Range Interpretation Code Description Data Milady rce(s) Supporting Document(s) Reticulocytes/100 erythrocytes in Blood by Automated count 1.3 % 0.5 - 1.5 [facility] ID Date Data Source [id number] 04/04/2019 04:41:[address] [facility] Value Range Interpretation Code Description Data Milady rce(s) Supporting Document(s) CBC NO DIFF [facility] COMPLETE BLOOD COUNT Leukocytes [#/volume] in Blood by Automated count 8.6 10^3/uL 4.2 - 1 1.0 [facility] Erythrocytes [#/volume] in Blood by Automated count 4.92 10^6/uL 4. 20 - 5.40 [facility] Hemoglobin [Mass/volume] in Blood 13.1 g/dL 12.0 - 16.0 [facility] Hematocrit [Volume Fraction] of Blood by Automated count 41.5 % 3 7.0 - 47.0 [facility] Erythrocyte mean corpuscular volume [Entitic volume] by Auto mated count 84.3 fL 81.0 - 101 [facility] Erythrocyte mean corpuscular hemoglobin [Entitic mass] by Automated count 26.6 pg 27.0 - 34.0 L [facility] Erythrocyte mean corpuscular hemoglobin concentration [Mass/volume] by Automated count 31.6 g/dL 31.0 - 36.0 [facility] Erythrocyte distribution width [Ratio] by Automated count 14.8 % 11.5 - 14.5 H [facility] Platelets [#/volume] in Blood by Automated count 314 10^3/uL 150 - 45 0 [facility] Platelet mean volume [Entitic volume] in Blood by Automated count 9.2 fL 7.4 - 10.4 [facility] Procedure Social History Code Duration Value Status Description Data Source(s ) Smoking 07/26/2019 12:00:00 AM EDT Patient is a former smoker completed Patient is a former smoker [place] ([facility], ) Vital Signs ID Date Data Source UNK Name Value Range Interpretation Code Description Data Source(s) Inhaled oxygen concentration 21 % 21 % [facility]) Inhaled oxygen flow rate 0 L/min 0 L/min [facility]) Oxygen saturation in Arterial blood by Pulse oximetry 98 % 98 % [facility] Body surface area Derived from formula 2.03 m2 2.03 m2 [facility]) Body mass index (BMI) [Ratio] 33.9 kg/m2 33.9 k g/m2 [facility]) Body weight 209 [lb_av] 209 [lb_av] [place] ([facility]) Body height 65.8 [in_i] 65.8 [in_i] [place] ([facility]) Body temperature 97.6 [degF] 97.6 [degF] [place] ([facility]) Respiratory rate 22 /min 22 /min [place] ([facility]) Heart rate 77 /min 77 /min [place] ([facility]) Diastolic blood pressure 68 mm[Hg] 68 mm[Hg] [place] ([facility]) Systolic blood pressure 120 mm[Hg] 120 mm[Hg] G [facility] ([facility]) Inhaled oxygen concentration 21 % 21 % [place] ([facility]) Inhaled oxygen flow rate 0 L/min 0 L/min [place] ([facility]) Oxygen saturation in Arterial blood by Pulse oximetry 94 % 94 % [place] ([facility]) Body mass index (BMI) [Ratio] 37.0 kg/m2 37.0 k g/m2 [place] ([facility]) Body weight 228 [lb_av] 228 [lb_av] [place] ([facility]) Body height 65.8 [in_i] 65.8 [in_i] [place]) Body temperature 97.5 [degF] 97.5 [degF] [place]) Body surface area Derived from formula 2.11 m2 2.11 m2 [place]) Respiratory rate 20 /min 20 /min [place] ([facility]) Heart rate 74 /min 74 /min [place] ([facility]) Diastolic blood pressure 84 mm[Hg] 84 mm[Hg] [place] ([facility]) Systolic blood pressure 120 mm[Hg] 120 mm[Hg] [facility] ([facility]) Body weight 96.787 kg 96.787 kg [facility] Body mass index (BMI) [Ratio] 34.4 kg/m2 34.4 k g/m2 [place] ([facility]) Body weight 213.38 [lb_av] 213.38 [lb_av] [place] ([facility]) Body height 66 [in_i] 66 [in_i] [facility] ([facility]) 5'6" Body temperature 97.7 [degF] 97.7 [degF] [facility] ([facility]) Oxygen saturation in Arterial blood by Pulse oximetry 98 % 98 % [facility] ([facility]) Heart rate 65 /min 65 /min [facility] ([facility]) Diastolic blood pressure 64 mm[Hg] 64 mm[Hg] [facility] ([facility]) Systolic blood pressure 122 mm[Hg] 122 mm[Hg] [facility]) Inhaled oxygen concentration 21 % 21 % [place] ([facility]) Inhaled oxygen flow rate 0 L/min 0 L/min [place] ([facility]) Oxygen saturation in Arterial blood by Pulse oximetry 99 % 99 % [place] ([facility]) Body height 65.8 [in_i] 65.8 [in_i] [place] ([facility]) Body temperature 98 [degF] 98 [degF] [place] ([facility]) Respiratory rate 22 /min 22 /min [place] ([facility]) Heart rate 60 /min 60 /min [place] ([facility]) Diastolic blood pressure 68 mm[Hg] 68 mm[Hg] [place] ([facility]) Systolic blood pressure 122 mm[Hg] 122 mm[Hg] [place] ([facility]) Inhaled oxygen concentration 21 % 21 % [place] ([facility]) Inhaled oxygen flow rate 0 L/min 0 L/min [place] ([facility]) Oxygen saturation in Arterial blood by Pulse oximetry 98 % 98 % [place] ([facility]) Body surface area Derived from formula 2.05 m2 2.05 m2 [place] ([facility]) Body mass index (BMI) [Ratio] 34.8 kg/m2 34.8 k g/m2 [place] ([facility]) Body weight 214 [lb_av] 214 [lb_av] [place] ([facility]) Body height 65.8 [in_i] 65.8 [in_i] [place] ([facility]) Body temperature 98.7 [degF] 98.7 [degF] [place] ([facility]) Respiratory rate 24 /min 24 /min [place] ([facility]) Heart rate 75 /min 75 /min [place] ([facility]) Diastolic blood pressure 68 mm[Hg] 68 mm[Hg] [place] ([facility]) Systolic blood pressure 120 mm[Hg] 120 mm[Hg] [facility] ([facility]) Inhaled oxygen concentration 21 % 21 % [place] ([facility]) Inhaled oxygen flow rate 0 L/min 0 L/min [place]) Oxygen saturation in Arterial blood by Pulse oximetry 98 % 98 % [place] ([facility]) Body surface area Derived from formula 2.06 m2 2.06 m2 [place] ([facility]) Body mass index (BMI) [Ratio] 35.1 kg/m2 35.1 k g/m2 [place] ([facility]) Body weight 216 [lb_av] 216 [lb_av] [place] ([facility]) Body height 65.8 [in_i] 65.8 [in_i] [place] ([facility]) Body temperature 98.1 [degF] 98.1 [degF] [place] ([facility]) Respiratory rate 24 /min 24 /min [place] ([facility]) Heart rate 69 /min 69 /min [place] ([facility]) Diastolic blood pressure 72 mm[Hg] 72 mm[Hg] [place] ([facility]) Systolic blood pressure 122 mm[Hg] 122 mm[Hg] [facility] ([facility]) Body weight 97.524 kg 97.524 kg [place] ([facility] ) Body mass index (BMI) [Ratio] 34.7 kg/m2 34.7 k g/m2 [place] ([facility]) Body weight 215.00 [lb_av] 215.00 [lb_av] [place] ([facility]) Body height 66 [in_i] 66 [in_i] [facility] ([facility]) 5'6" Body temperature 98.0 [degF] 98.0 [degF] [facility] ([facility]) Oxygen saturation in Arterial blood by Pulse oximetry 96 % 96 % [facility] ([facility]) Heart rate 64 /min 64 /min [facility] ([facility]) Diastolic blood pressure 78 mm[Hg] 78 mm[Hg] [facility] ([facility]) Systolic blood pressure 118 mm[Hg] 118 mm[Hg] [facility] ([facility]) Inhaled oxygen concentration 21 % 21 % [place] ([facility]) Inhaled oxygen flow rate 0 L/min 0 L/min [place] ([facility]) Oxygen saturation in Arterial blood by Pulse oximetry 98 % 98 % [place] ([facility]) Body surface area Derived from formula 2.07 m2 2.07 m2 [place] ([facility]) Body mass index (BMI) [Ratio] 35.2 kg/m2 35.2 k g/m2 [place] ([facility]) Body weight 217 [lb_av] 217 [lb_av] [facility] [facility] Body height 65.8 [in_i] 65.8 [in_i] [place] ([facility]) Body temperature 97.8 [degF] 97.8 [degF] [facility] ([facility]) Respiratory rate 22 /min 22 /min [place] ([facility]) Heart rate 88 /min 88 /min [place] ([facility]) Diastolic blood pressure 68 mm[Hg] 68 mm[Hg] [place] ([facility]) Systolic blood pressure 118 mm[Hg] 118 mm[Hg] [place] ([facility]) Inhaled oxygen concentration 21 % 21 % [place] ([facility]) Inhaled oxygen flow rate 0 L/min 0 L/min [place] ([facility]) Oxygen saturation in Arterial blood by Pulse oximetry 98 % 98 % [place] ([facility]) Body surface area Derived from formula 2.06 m2 2.06 m2 [place] ([facility]) Body mass index (BMI) [Ratio] 34.9 kg/m2 34.9 k g/m2 [place] ([facility]) Body weight 215 [lb_av] 215 [lb_av] [place] ([facility]) Body height 65.8 [in_i] 65.8 [in_i] [place] ([facility]) Body temperature 97.8 [degF] 97.8 [degF] [facility] ([facility]) Respiratory rate 24 /min 24 /min [place] ([facility]) Heart rate 78 /min 78 /min [place] ([facility]) Diastolic blood pressure 68 mm[Hg] 68 mm[Hg] [place] ([facility]) Systolic blood pressure 116 mm[Hg] 116 mm[Hg] [facility]) Diastolic blood pressure 72 mm[Hg] 72 mm[Hg] W1 ([facility]) Systolic blood pressure 112 mm[Hg] 112 mm[Hg] e CW1 ([facility]) Body mass index (BMI) [Ratio] 34.99 kg/m2 34.99 kg/m2 [facility] ([facility]) Body height 66 [in_us] 66 [in_us] W1 (Critical access hospital) Body weight Measured 216.8 [lb_av] 216.8 [lb_av ] W1 ([facility]) Patient Treatment Plan of Care Planned Activity Planned Date Details Description Data Source (s) Phentermine Hydrochloride 37.5 MG Oral Tablet 04/17/2020 12:00:00 A M [facility] ([facility]) Betamethasone 0.5 MG/ML Topical Cream 04/17/2020 12:00:00 AM [facility]) Phentermine Hydrochloride 37.5 MG Oral Tablet 03/21/2020 12:00:00 A M [facility] ([facility]) buspirone hydrochloride 15 MG Oral Tablet 03/21/2020 12:00:[address] [facility] ([facility]) 24 HR venlafaxine 75 MG Extended Release Oral Capsule [Effexor] 03/21/2020 12:00:00 AM [facility] ([facility]) Sumatriptan 100 MG Oral Tablet [Imitrex] 03/21/2020 12:00:00 AM [facility] ([facility]) 200 ACTUAT Albuterol 0.09 MG/ACTUAT Metered Dose Inhal er [ProAir] 03/21/2020 12:00:00 AM [facility] ([facility]) benzonatate 100 MG Oral Capsule [Tessalon Perles] 03/21/2020 12: 00:00 AM [facility] ([facility]) buspirone hydrochloride 15 MG Oral Tablet 03/20/2020 12:00:[address] [facility] ([facility]) 24 HR venlafaxine 75 MG Extended Release Oral Capsule [Effexor] 03/20/2020 12:00:00 AM [facility] ([facility]) Sumatriptan 100 MG Oral Tablet [Imitrex] 03/20/2020 12:00:00 AM [facility] ([facility]) 200 ACTUAT Albuterol 0.09 MG/ACTUAT Metered Dose Inhal er [ProAir] 03/20/2020 12:00:00 AM [facility] ([facility]) benzonatate 100 MG Oral Capsule [Tessalon Perles] 03/20/2020 12: 00:00 AM [facility] ([facility]) Phentermine Hydrochloride 37.5 MG Oral Tablet 03/20/2020 12:00:00 A M [facility] ([facility]) buspirone hydrochloride 15 MG Oral Tablet 06/21/2019 12:00:00 AM T [place] ([facility]) 200 ACTUAT Albuterol 0.09 MG/ACTUAT Metered Dose Inhal er [ProAir] 06/21/2019 12:00:00 AM EDT [place] ([facility]) Sumatriptan 100 MG Oral Tablet [Imitrex] 06/21/2019 12:00:00 AM EDT [place] ([facility]) 200 ACTUAT Albuterol 0.09 MG/ACTUAT Metered Dose Inhal er [ProAir] 06/21/2019 12:00:00 AM EDT [place] ([facility]) 24 HR venlafaxine 75 MG Extended Release Oral Capsule [Effexor] 05/11/2019 [facility]00[facility] Omeprazole 20 MG Delayed Release Oral Capsule 05/11/2019 12:00:00 A [facility] ([facility]) benzonatate 100 MG Oral Capsule [Tessalon Perles] 05/11/2019 12: 00:00 AM [facility] ([facility]) 24 HR venlafaxine 75 MG Extended Release Oral Capsule [Effexor] 04/07/2019 12:00:00 AM EST [place] ([facility]) 24 HR venlafaxine 37.5 MG Extended Release Oral Capsul e [Effexor] 04/04/2019 12:00:00 AM EST [place] ([facility]) buspirone hydrochloride 15 MG Oral Tablet 04/04/2019 12:00:[address] [facility] ([facility]) Omeprazole 20 MG Delayed Release Oral Capsule 04/04/2019 12:00:00 A [facility] ([facility]) 200 ACTUAT Albuterol 0.09 MG/ACTUAT Metered Dose Inhal er [Ventolin] 04/04/2019 12:00:00 AM EST [place] ([facility]) benzonatate 100 MG Oral Capsule [Tessalon Perles] 04/04/2019 12: 00:00 AM [facility]) buspirone hydrochloride 15 MG Oral Tablet 01/04/2019 12:00:00 AM [facility] ([facility]) 24 HR venlafaxine 75 MG Extended Release Oral Capsule [Effexor] 01/04/2019 12:00:00 AM EDT [place] ([facility]) Omeprazole 20 MG Delayed Release Oral Capsule 01/04/2019 12:00:00 A M EDT [place] ([facility]) 200 ACTUAT Albuterol 0.09 MG/ACTUAT Metered Dose Inhal er [Ventolin] 01/04/2019 12:00:00 AM EDT [place] ([facility])
== END 2020-04-20 07:51 | disposition left against medical advice (07) ==
LOC: M ED 06:01
DX: G43.909 Migraine, unspecified, not intractable, without status migrainosus (principal); Z88.1 Allergy status to other antibiotic agents; Z88.8 Allergy status to other drugs, medicaments and biological substances
CPT/HCPCS: 96361; 96374; 99283; J2765

== ENCOUNTER 2021-11-02 19:01 | Emergency (ER) | payer MEDICAID, OTHER ==
[~2021-11-02] VITALS: Ht 167.6 cm; Wt 98.2 kg
[2021-11-02 19:01] VITALS: BP 129/80
[~2021-11-02 19:01] MED LIST changes: +IMIT50TA PO; +OMEP-173 PO; -OMEP-218 PO; +OMEP40CA4 PO; -OMEP40CA97 PO; +PHEN-239 PO
[2021-11-02] MEDS ORDERED: BACTRIM 160MG/800MG DS TAB PO ONE (20:10)
[2021-11-02] MEDS ORDERED: BACT800T5 PO (20:12)
== END 2021-11-02 20:27 | disposition home or self-care (01) ==
LOC: M ED 19:01
DX: S80.861A Insect bite (nonvenomous), right lower leg, initial encounter (principal); W57.XXXA Bitten or stung by nonvenomous insect and other nonvenomous arthropods, initial encounter; Y92.89 Other specified places as the place of occurrence of the external cause; E28.2 Polycystic ovarian syndrome; F41.9 Anxiety disorder, unspecified; G47.33 Obstructive sleep apnea (adult) (pediatric); Z79.899 Other long term (current) drug therapy; Z88.1 Allergy status to other antibiotic agents; Z88.8 Allergy status to other drugs, medicaments and biological substances

== ENCOUNTER 2022-06-24 07:25 | Emergency (ER) | payer OTHER, SELFPAY ==
[~2022-06-24] VITALS: Ht 167.6 cm; Wt 92.2 kg
[2022-06-24 07:25] VITALS: BP 139/89
[~2022-06-24 07:25] MED LIST changes: +CIPR0.3S37 OS; -CIPR0.3S6 OS; +CYCL1SOL14 OS; -CYCL1SOL17 OS
== END 2022-06-24 08:55 | disposition left against medical advice (07) ==
LOC: M ED 07:25
DX: Z53.21 Procedure and treatment not carried out due to patient leaving prior to being seen by health care provider (principal)

== ENCOUNTER 2023-02-01 18:45 | Emergency (ER) | payer BC, OTHER, SELFPAY ==
[2023-02-01 19:08] LABS: BASO % 0.4 % (0.0-1.0); EOS % 0.4 % (0.0-3.0); HEMATOCRIT 41.7 % (36.0-47.0); HEMOGLOBIN 13.8 g/dl (12.0-15.5); LYMPH # 1.9 10^3/uL (1.5-5.0); LYMPH % 20.1 % (24.0-44.0); MEAN CORPUSCULAR HEMOGLOBIN 30.3 pg (27.0-33.0); MEAN CORPUSCULAR HGB CONC 33.1 g/dl (32.0-36.5); MEAN CORPUSCULAR VOLUME 91.4 fl (80.0-96.0); MONO # 0.6 10^3/uL (0.0-0.8); MONO % 6.5 % (2.0-8.0); NEUTROPHILS # 6.7 10^3/uL (1.5-8.5); NEUTROPHILS % 72.2 % (36.0-66.0); PLATELET COUNT, AUTOMATED 374 10^3/uL (150-450); RED BLOOD COUNT 4.56 10^6/uL (4.00-5.40); WHITE BLOOD COUNT 9.3 10^3/uL (4.0-10.0)
[2023-02-01 19:50] LABS: BLOOD UREA NITROGEN 8 MG/DL (9-23); CALCIUM LEVEL 9.8 MG/DL (8.5-10.1); CARBON DIOXIDE LEVEL 24 MMOL/L (20-31); CHLORIDE LEVEL 98 MMOL/L (98-107); CREATININE FOR GFR 0.76 MG/DL (0.55-1.30); GLOMERULAR FILTRATION RATE > 60.0 (>58); GLUCOSE, FASTING 165 MG/DL (60-100); POTASSIUM SERUM 4.3 MMOL/L (3.5-5.1); SODIUM LEVEL 134 MMOL/L (136-145)
[2023-02-01 21:20] LABS: BARBITURATES URINE NEGATIVE (NEGATIVE); BENZODIAZEPINES URINE NEGATIVE (NEGATIVE); COCAINE METABOLITE URINE NEGATIVE (NEGATIVE); METHADONE URINE NEGATIVE (NEGATIVE); OPIATES URINE NEGATIVE (NEGATIVE); PHENCYCLIDINE URINE NEGATIVE (NEGATIVE)
[2023-02-01 21:23] LABS: AMPHETAMINES LEVEL URINE POSITIVE (NEGATIVE); CANNABINOIDS URINE POSITIVE (NEGATIVE)
[2023-02-01] MEDS ORDERED: WELLTAB40 PO (21:37)
[2023-02-01] MEDS ORDERED: ALBU90AE INH (21:40)
[2023-02-01] MEDS ORDERED: BUPR150T12 PO (21:56)
[2023-02-01 22:30] VITALS: BP 157/111; TEMP 98.4; O2SAT 99
[2023-02-02] MEDS ORDERED: BUPR150T12 PO (09:49)
[2023-02-02] MEDS ORDERED: BUPR300T92 PO (09:49)
[2023-02-02] MEDS ORDERED: PHEN37.58 PO (09:51)
== END 2023-02-01 22:35 | disposition home or self-care (01) ==
LOC: M ED 18:45
DX: R20.2 Paresthesia of skin (principal); E11.9 Type 2 diabetes mellitus without complications; I10 Essential (primary) hypertension

== ENCOUNTER 2023-02-01 23:26 | Inpatient (IN) | payer OTHER, BC ==
[~2023-02-01] VITALS: Ht 167.6 cm; Wt 90.8 kg
[~2023-02-01 23:26] MED LIST changes: +ALBU90AE INH; +BUPR150T12 PO; +WELLTAB40 PO
[2023-02-01] MEDS ORDERED: levETIRAcetam INJection 1,000 MG in D5W 100 ML IV ONE (23:35)
[2023-02-02] MEDS ORDERED: ACETAMINOPHEN 325 MG TAB PO ONE (01:05)
[2023-02-02 04:00] VITALS: BP 122/69; TEMP 97.9; O2SAT 100
[2023-02-02] MEDS ORDERED: LORazepam 2 MG/ML 1ML VIAL IM PRN (04:15)
[2023-02-02 08:29] LABS: HEMATOCRIT 38.7 % (36.0-47.0); MEAN CORPUSCULAR HEMOGLOBIN 30.7 pg (27.0-33.0); MEAN CORPUSCULAR HGB CONC 33.6 g/dl (32.0-36.5); MEAN CORPUSCULAR VOLUME 91.3 fl (80.0-96.0); PLATELET COUNT, AUTOMATED 340 10^3/uL (150-450); RED BLOOD COUNT 4.24 10^6/uL (4.00-5.40); WHITE BLOOD COUNT 14.6 10^3/uL (4.0-10.0)
[2023-02-02] MEDS: levETIRAcetam 250MG TABLET (KEPPRA) PO SCH ×2 (08:31→21:01)
[2023-02-02] MEDS ORDERED: FLUTICASONE PROP 0.05% NASAL SPRAY 16 GM (FLONASE) NARES PRN (08:40)
[2023-02-02 08:57] LABS: ALBUMIN 3.8 G/DL (3.2-5.2); ALKALINE PHOSPHATASE 62 U/L (46-116); ALT/SGPT 23 U/L (7.0-40); AST/SGOT 29 U/L (<34); BILIRUBIN,TOTAL 0.9 MG/DL (0.3-1.2); BLOOD UREA NITROGEN 7 MG/DL (9-23); CALCIUM LEVEL 9.1 MG/DL (8.5-10.1); CARBON DIOXIDE LEVEL 25 MMOL/L (20-31); CHLORIDE LEVEL 100 MMOL/L (98-107); CREATININE FOR GFR 0.62 MG/DL (0.55-1.30); GLOMERULAR FILTRATION RATE > 60.0 (>58); GLUCOSE, FASTING 92 MG/DL (60-100); POTASSIUM SERUM 4.2 MMOL/L (3.5-5.1); SODIUM LEVEL 136 MMOL/L (136-145); TOTAL PROTEIN 6.8 G/DL (5.7-8.2)
[2023-02-02] MEDS ORDERED: MED REC IN PROGRESS XX SCH (09:10)
[2023-02-02] MEDS ORDERED: BUPR300T92 PO (09:49)
[2023-02-02] MEDS ORDERED: BUPR150T12 PO (09:49)
[2023-02-02] MEDS ORDERED: PHEN37.58 PO (09:51)
[2023-02-02] MEDS ORDERED: HOME MED LIST COMPLETE! XX SCH (10:00)
[2023-02-02] MEDS: busPIRone 5 MG TAB PO SCH ×2 (10:26→21:01)
[2023-02-02] MEDS: ENOXAPARIN 40MG/0.4ML SYRINGE (J1650 PER 10MG) SC SCH (10:28)
[2023-02-02] MEDS: ACETAMINOPHEN TAB 650MG DOSE (2X325MG) PO PRN ×2 (10:28→21:05)
[2023-02-02] MEDS: LIDOCAINE 5% (LIDODERM) PATCH TD SCH (10:28)
[2023-02-02 14:00] VITALS: BP 125/88; TEMP 97.9; O2SAT 95
[2023-02-02 14:09] LABS: HCG, SERUM QUALITATIVE NEGATIVE (NEGATIVE)
[2023-02-02 20:00] VITALS: BP 120/77; TEMP 97.9; O2SAT 96
[2023-02-03 06:00] VITALS: BP 119/78; TEMP 97.9; O2SAT 97
[2023-02-03 06:29] LABS: HEMATOCRIT 39.9 % (36.0-47.0); HEMOGLOBIN 13.2 g/dl (12.0-15.5); MEAN CORPUSCULAR HEMOGLOBIN 30.3 pg (27.0-33.0); MEAN CORPUSCULAR HGB CONC 33.1 g/dl (32.0-36.5); MEAN CORPUSCULAR VOLUME 91.7 fl (80.0-96.0); PLATELET COUNT, AUTOMATED 322 10^3/uL (150-450); RED BLOOD COUNT 4.35 10^6/uL (4.00-5.40); WHITE BLOOD COUNT 7.9 10^3/uL (4.0-10.0)
[2023-02-03 06:55] LABS: BLOOD UREA NITROGEN 7 MG/DL (9-23); CALCIUM LEVEL 9.2 MG/DL (8.5-10.1); CARBON DIOXIDE LEVEL 28 MMOL/L (20-31); CHLORIDE LEVEL 100 MMOL/L (98-107); CREATININE FOR GFR 0.64 MG/DL (0.55-1.30); GLOMERULAR FILTRATION RATE > 60.0 (>58); GLUCOSE, FASTING 106 MG/DL (60-100); POTASSIUM SERUM 4.2 MMOL/L (3.5-5.1); SODIUM LEVEL 137 MMOL/L (136-145)
[2023-02-03] MEDS: ENOXAPARIN 40MG/0.4ML SYRINGE (J1650 PER 10MG) SC SCH (08:14)
[2023-02-03] MEDS: LIDOCAINE 5% (LIDODERM) PATCH TD SCH (08:15)
[2023-02-03] MEDS: ACETAMINOPHEN TAB 650MG DOSE (2X325MG) PO PRN (08:15)
[2023-02-03] MEDS: levETIRAcetam 250MG TABLET (KEPPRA) PO SCH (08:15)
[2023-02-03] MEDS: busPIRone 5 MG TAB PO SCH (08:28)
[2023-02-03] MEDS ORDERED: INFLUENZA QUADRIVALENT PF VACCINE 0.5ML SYRINGE IM.IMMUN ONE (09:00)
[2023-02-03] MEDS ORDERED: KEPP1TAB PO (10:04)
[2023-02-03] MEDS ORDERED: ACET1TAB55 PO (10:05)
== END 2023-02-03 12:11 | disposition home or self-care (01) | DRG 53 ==
LOC: EDBD 23:26 → M ED 23:26 → M ED INP 02-02 03:27 → M MSPAV 02-02 04:00
PROVIDERS: ADMIT Family Medicine; ATTEND Internal Medicine
DX: R56.9 Unspecified convulsions (principal); F32.A Depression, unspecified; F41.9 Anxiety disorder, unspecified; G43.909 Migraine, unspecified, not intractable, without status migrainosus; S42.294A Other nondisplaced fracture of upper end of right humerus, initial encounter for closed fracture; V47.0XXA Car driver injured in collision with fixed or stationary object in nontraffic accident, initial encounter; T43.295A Adverse effect of other antidepressants, initial encounter; Z90.49 Acquired absence of other specified parts of digestive tract; Z90.79 Acquired absence of other genital organ(s); Z79.899 Other long term (current) drug therapy; Z88.1 Allergy status to other antibiotic agents; Z88.8 Allergy status to other drugs, medicaments and biological substances; Z20.822 Contact with and (suspected) exposure to COVID-19

== ENCOUNTER → 2023-03-10 | Outpatient (CLI) | payer OTHER, BC ==
[~2023-03-10] MED LIST changes: +ACET1TAB55 PO; +BUPR300T92 PO; -EFFE150C2 PO; +EFFE150C3 PO; +KEPP1TAB PO; +PHEN37.58 PO
== END ==
LOC: M SOG 07:56
PROVIDERS: ATTEND Physician Assistant
DX: M25.511 Pain in right shoulder (principal)

== ENCOUNTER 2023-06-10 15:00 | Emergency (ER) | payer BC, MEDICAID, OTHER, SELFPAY ==
[~2023-06-10] VITALS: Ht 167.6 cm; Wt 95.7 kg
[2023-06-10 15:02] VITALS: BP 149/75; TEMP 98; O2SAT 100
[2023-06-10] MEDS ORDERED: FLUO20CA22 (15:09)
== END 2023-06-10 16:20 | disposition left against medical advice (07) ==
LOC: M ED 15:00
DX: Z53.21 Procedure and treatment not carried out due to patient leaving prior to being seen by health care provider (principal)